=== PATIENT | male | born 1945 | race Caucasian/White ===

== ENCOUNTER 2016-12-20 09:00 | Outpatient (CLI) | payer MEDICARE, BC | END 2016-12-20 09:01 | disposition home or self-care (01) | DX: E11.9 Type 2 diabetes mellitus without complications (principal); Z79.899 Other long term (current) drug therapy ==

== ENCOUNTER 2017-03-21 08:43 | Outpatient (CLI) | payer MEDICARE, BC ==
[2017-03-21 14:25] LABS: BASOPHILS # (AUTO) 0.1 10^3/uL (0.0-0.1); BASOPHILS % (AUTO) 0.8 %; EOSINOPHILS # (AUTO) 0.2 10^3/uL (0.0-0.7); EOSINOPHILS % (AUTO) 2.1 %; HCT - HEMATOCRIT 42.4 % (42.0-52.0); HGB - HEMOGLOBIN 14.5 g/dL (14.0-18.0); LYMPHOCYTES # (AUTO) 1.5 10^3/uL (1.5-3.5); LYMPHOCYTES % (AUTO) 15.5 %; MEAN CORPUSCULAR HEMOGLOBIN 31.1 pg (27.0-31.0); MEAN CORPUSCULAR HGB CONC 34.1 g/dL (32.0-36.0); MEAN CORPUSCULAR VOLUME 91.2 fL (80.0-94.0); MEAN PLATELET VOLUME 9.2 fL (7.4-11.4); MONOCYTES # (AUTO) 0.8 10^3/uL (0.0-1.0); MONOCYTES % (AUTO) 8.2 %; NEUTROPHILS % (AUTO) 73.4 %; NUCLEATED RED BLOOD CELLS AUTO 0.1 /100WBC; RED BLOOD COUNT 4.65 10^6/uL (4.70-6.10); RED CELL DISTRIBUTION WIDTH 13.6 % (12.0-15.0); UNCORRECTED WHITE BLOOD COUNT 9.6 x10^3/uL; WHITE BLOOD COUNT 9.6 x10^3/uL (4.8-10.8)
[2017-03-21 14:37] LABS: ALBUMIN/GLOBULIN RATIO 1.9 (1.0-2.2); BUN - BLOOD UREA NITROGEN 16 mg/dL (6-20); CALCIUM 9.4 mg/dL (8.5-10.3); CARBON DIOXIDE - CO2 27 mmol/L (21-32); CHLORIDE 102 mmol/L (101-111); CHOL/HDL RATIO 4.3 (<5.0); CHOLESTEROL 204 mg/dL; CREATININE 1.1 mg/dL (0.6-1.2); GFR - MDRD 66 (>89); GLUCOSE 174 mg/dL (70-100); HDL CHOLESTEROL 48 mg/dL; LDL/HDL RATIO 2.4 (<3.6); POTASSIUM 4.8 mmol/L (3.5-5.0); SODIUM 138 mmol/L (135-145); TRIGLYCERIDES 211 mg/dL; VLDL CHOLESTEROL 42 mg/dL
[2017-03-21 14:38] LABS: HEMOGLOBIN A1C 0.97 g/dL
== END 2017-03-21 08:44 | disposition home or self-care (01) ==
LOC: LAB.R 08:43
PROVIDERS: ATTEND Physician Assistant Medical
DX: E03.9 Hypothyroidism, unspecified (principal); E11.9 Type 2 diabetes mellitus without complications; E78.2 Mixed hyperlipidemia; F32.9 Major depressive disorder, single episode, unspecified; Z79.899 Other long term (current) drug therapy
CPT/HCPCS: 80053; 80061; 83036; 84443; 85025

== ENCOUNTER 2017-04-01 15:44 | Outpatient (CLI) | payer MEDICARE, BC ==
[2017-04-01] MEDS ORDERED: GADOBUTROL 7.5 MMOL/7.5 ML VIAL IVP ONE (16:50)
--- NOTE | 2017-04-02 17:00 | MRI Report ---
EXAM: MRI BRAIN WITHOUT AND WITH CONTRAST EXAM DATE: 04/01/2017 05:03 PM. CLINICAL HISTORY: 71-year-old with severe history of motion sickness as well as sensation of nausea a nd vomiting when patient tilts her head backward. COMPARISON: None. TECHNIQUE: Multiplanar, multisequence T1-weighted and fluid-sensitive MR sequences of the brain were performed. Sequences optimized for routine evaluation. Other: None. Without and with IV Contrast: 7.5 cc GADAVIST. FINDINGS: Brain Volume: Mild cortical volume loss appears age-appropriate. Parenchyma/Dura: No acute parenchymal hemorrhage, mass, or midline shift. Moderate bilateral areas of T2/FLAIR signal hyperintensity seen. No areas of restricted diffusion to suggest acute infarct. Ther e is punctate foci susceptibility artifact seen within the posterior aspect of the right hippocampus likely representing old hemorrhagic blood product. There is susceptibility artifact seen within bilat eral globus pallidus and putamen likely representing mineralization. Pituitary: Unremarkable. Ventricles/Cisterns: No definite abnormal extra axial fluid collection/mass seen. Ventricles and sulc i appear prominent but appropriate thick central volume loss. Cisterns are patent. Fluid is seen with in Meckel's case. Visualized internal auditory canals appear clear. Sinuses: The visualized paranasal sinuses, mastoid air cells, and middle ear cavities are clear. Flui d is seen within the semicircular canals and cochlea. Orbits: The visualized orbits demonstrate changes of bilateral lens replacement. Vasculature: Visualized major intracranial flow voids appear maintained. Dural sinuses appear patent. Bones: The calvarium appears normal. The craniocervical junction appears normal. Other: No abnormal postcontrast enhancement seen. IMPRESSION: 1. No acute infarct, intracranial hemorrhage, mass, hydrocephalus, or abnormal postcontrast enhanceme nt. 2. Moderate white matter changes that while nonspecific, may represent sequela of chronic small vesse l ischemic disease. [facility] Referring Provider Line: [phone] SITE ID: [id number]
== END 2017-04-01 15:45 | disposition home or self-care (01) ==
LOC: DI 15:44
PROVIDERS: ATTEND Physician Assistant Medical
DX: R26.81 Unsteadiness on feet (principal); R26.0 Ataxic gait; R41.82 Altered mental status, unspecified
CPT/HCPCS: 70553; A9585

== ENCOUNTER 2017-05-09 10:56 | Outpatient (CLI) | payer MEDICARE, BC | END 2017-05-09 10:57 | disposition home or self-care (01) | DX: E03.9 Hypothyroidism, unspecified (principal); Z79.899 Other long term (current) drug therapy ==

== ENCOUNTER 2017-08-14 12:26 | Outpatient (CLI) | payer MEDICARE, BC ==
[2017-08-14 14:02] LABS: HEMOGLOBIN A1C 0.85 g/dL
[2017-08-15 12:03] LABS: CREATININE 1.3 mg/dL (0.6-1.2)
== END 2017-08-14 12:27 | disposition home or self-care (01) ==
LOC: LAB.R 12:26
PROVIDERS: ATTEND Physician Assistant Medical
DX: R41.89 Other symptoms and signs involving cognitive functions and awareness (principal); E11.9 Type 2 diabetes mellitus without complications; Z79.899 Other long term (current) drug therapy
CPT/HCPCS: 82565; 82607; 82947; 83036; 84520

== ENCOUNTER 2017-08-18 07:47 | Outpatient (CLI) | payer MEDICARE, BC ==
[~2017-08-18 07:47] MED LIST: IOPAMIDOL-300 100 ML VIAL ONE
[2017-08-18] MEDS ORDERED: IOPAMIDOL-300 100 ML VIAL IVP ONE (08:39)
--- NOTE | 2017-08-18 16:26 | CT Preliminary Report ---
Exam: CT NECK ANGIO IMPRESSION: 1. Normal neck CT angiogram. No hemodynamically significant stenoses. [facility] SITE ID: [id number]
--- NOTE | 2017-08-18 16:28 | CT Report ---
EXAM: CT ANGIOGRAM NECK EXAM DATE: 08/18/2017 08:40 AM. CLINICAL HISTORY: Neck pain that causes dizziness. COMPARISON: None. MRI of the brain 04/01/2017. TECHNIQUE: Routine axial helical imaging was performed from the skull base through the aortic arch. I V Contrast: 100 cc Isovue-300. Reconstructions: Routine multiplanar 3D MIP reconstructions. Evaluatio n of arterial stenosis is based on a NASCET method of measurement. In accordance with CT protocol optimization, one or more of the following dose reduction techniques w ere utilized for this exam: automated exposure control, adjustment of mA and/or KV based on patient s ize, or use of iterative reconstructive technique. FINDINGS: Mild tortuosity of the aortic arch is seen. Normal three-vessel branching is present. Great vessels a re patent and unremarkable. Right Carotid: The common carotid, internal carotid, and external carotid arteries are widely patent. No dissection, significant atherosclerotic plaque, or calcification identified. Left Carotid: The common carotid, internal carotid, and external carotid arteries are widely patent. No dissection, significant atherosclerotic plaque, or calcification identified. Vertebrals: The vertebrobasilar system shows no stenoses. Intracranial Circulation: Normal. No stenoses or aneurysms of the visualized vessels. Other: The bones, soft tissues, and lung apices are within normal limits. IMPRESSION: 1. Normal neck CT angiogram. No hemodynamically significant stenoses. [facility] Referring Provider Line: [phone] SITE ID: [id number]
== END 2017-08-18 07:48 | disposition home or self-care (01) ==
LOC: DI 07:47
PROVIDERS: ATTEND Physician Assistant Medical
DX: R11.10 Vomiting, unspecified (principal)
CPT/HCPCS: 70498; Q9967

== ENCOUNTER 2017-11-15 08:00 | Outpatient (CLI) | payer MEDICARE, BC ==
[2017-11-15 10:34] LABS: HB2 TOTAL 14.5 g/dL; HEMOGLOBIN A1C 0.88 g/dL; HEMOGLOBIN A1C % 7.7 % (4.6-6.2)
== END 2017-11-15 08:01 | disposition home or self-care (01) ==
LOC: LAB.R 08:00
PROVIDERS: ATTEND Physician Assistant Medical
DX: E11.9 Type 2 diabetes mellitus without complications (principal)
CPT/HCPCS: 82947; 83036

== ENCOUNTER 2018-03-11 20:03 | Emergency (ER) | payer MEDICARE, BC ==
[2018-03-11 21:07] LABS: BASOPHILS # (AUTO) 0.1 10^3/uL (0.0-0.1); BASOPHILS % (AUTO) 0.8 %; EOSINOPHILS # (AUTO) 0.4 10^3/uL (0.0-0.7); EOSINOPHILS % (AUTO) 4.3 %; HGB - HEMOGLOBIN 13.8 g/dL (14.0-18.0); LYMPHOCYTES # (AUTO) 1.7 10^3/uL (1.5-3.5); LYMPHOCYTES % (AUTO) 19.2 %; MEAN CORPUSCULAR HEMOGLOBIN 30.6 pg (27.0-31.0); MEAN CORPUSCULAR VOLUME 92.9 fL (80.0-94.0); MEAN PLATELET VOLUME 8.8 fL (7.4-11.4); MONOCYTES # (AUTO) 0.8 10^3/uL (0.0-1.0); MONOCYTES % (AUTO) 9.1 %; NEUTROPHILS # (AUTO) 5.8 10^3/uL (1.5-6.6); NEUTROPHILS % (AUTO) 66.6 %; PLT - PLATELET COUNT 218 10^3/uL (130-450); RED CELL DISTRIBUTION WIDTH 13.3 % (12.0-15.0); WHITE BLOOD COUNT 8.8 x10^3/uL (4.8-10.8)
[2018-03-11 21:12] LABS: ALBUMIN 4.6 g/dL (3.2-5.5); ALBUMIN/GLOBULIN RATIO 1.9 (1.0-2.2); BILIRUBIN,TOTAL 0.8 mg/dL (0.2-1.0); CALCIUM 9.2 mg/dL (8.5-10.3); CREATININE 1.4 mg/dL (0.6-1.2); MAGNESIUM 1.8 mg/dL (1.7-2.8); PHOSPHORUS 3.6 mg/dL (2.5-4.6)
[2018-03-11 21:20] VITALS: BP 117/87
[2018-03-11] MEDS ORDERED: BACITRACIN OINT TOP STA (21:30)
--- NOTE | 2018-03-11 21:36 | ED Physician Documentation ---
PD HPI UPPER EXT INJURY - Stated complaint Stated Complaint: RT HAND LAC - Chief complaint Chief Complaint: Laceration - History obtained from History obtained from: Patient - History of Present Illness Location: Right, Hand Type of injury: Laceration Where injury occurred: Home Timing - onset: Today Timing - details: Abrupt onset Worsened by: Moving, Palpating Recently seen: Not recently seen - Additonal information Additional information: Patient is a 72 year old male with no significant past medical history who is presenting to the emergency department for hand laceration. Patient states states that he was washing dishes when he cut his hand on a wine glass. Patient is up to date on his tetanus. while in triage patient had an episode of tachycardia that stopped upon evaluation. Patient was asymptomatic upon initial evaluation. Review of Systems Ten Systems: 10 systems reviewed and negative Skin: reports: Laceration (s) PD PAST MEDICAL HISTORY - Past Medical History Cardiovascular: Arrhythmia Respiratory: None Endocrine/Autoimmune: Type 2 diabetes, HyPOthyroidism GI: None : None HEENT: Other Psych: Depression Musculoskeletal: Osteoarthritis Derm: Eczema - Past Surgical History Past Surgical History: No General: Colonoscopy - Present Medications Home Medications: Ambulatory Orders Medication Instructions Recorded Confirmed FLUoxetine [PROzac] 10 mg PO DAILY 06/15/15 05/20/16 Ketorolac [Toradol] 10 mg PO Q6H PRN #14 tablet 06/15/15 05/20/16 metFORMIN [Glucophage] 500 mg PO BID 06/15/15 05/20/16 Atorvastatin [Lipitor] 20 mg PO DAILY 05/20/16 05/20/16 FLUoxetine [PROzac] 20 mg PO DAILY 05/20/16 05/20/16 Levothyroxine [Synthroid] 125 mcg PO DAILY 05/20/16 05/20/16 Lisinopril 10 mg PO DAILY 05/20/16 05/20/16 buPROPion [Wellbutrin Sr] 150 mg PO DAILY 05/20/16 05/20/16 glipiZIDE [Glucotrol] 2.5 mg PO DAILY 05/20/16 05/20/16 - Allergies Allergies/Adverse Reactions: Allergies Allergy/AdvReac Type Severity Reaction Status Date / Time hydrocodone bitartrate * Allergy Intermediate Nausea Verified 03/11/18 20:35 [From Vicodin] acetaminophen [From Vicodin] Allergy Nausea Verified 06/15/15 14:45 - Social History Does the pt smoke?: No Smoking Status: Never smoker Does the pt drink ETOH?: No Does the pt have substance abuse?: No - Immunizations Immunizations are current?: Yes - POLST Patient has POLST: Yes PD ED PE NORMAL - Vitals Vital signs reviewed: Yes - General General: Alert and oriented X 3, No acute distress - HEENT HEENT: Atraumatic - Neck Neck: Supple, no meningeal sign - Cardiac Cardiac: RRR, No murmur - Respiratory Respiratory: No respiratory distress - Neuro Neuro: Alert and oriented X 3, No motor deficit, Normal speech Eye Opening: Spontaneous PD ED PE EXPANDED - Extremities Extremities: Right hand (3cm laceration of right medial hand) JOE UE/Hands Visual: 1 - laceration Results - Vitals Vitals: Vital Signs - 24 hr 03/11/18 03/11/18 03/11/18 20:14 20:28 21:19 Temperature 36.9 C Heart Rate 160 H 91 92 Respiratory 18 18 Rate Blood Pressure 132/90 H 117/87 H O2 Saturation 99 96 Oxygen O2 Source Room air - EKG (time done) 2024 Rate: Rate (enter#) (152) Rhythm: SVT [place]: Normal Intervals: Normal [place] Ischemia: ST depression Compare to prior EKG: Changed from prior EKG 2026 Rhythm: NSR [place]: Normal Intervals: Normal [place] QRS: Normal Ischemia: Normal ST segments - Labs Labs: Laboratory Tests 03/11/18 03/11/18 20:55 20:55 WBC 8.8 RBC 4.50 L Hgb 13.8 L Hct 41.8 L MCV 92.9 MCH 30.6 MCHC 33.0 RDW 13.3 Plt Count 218 MPV 8.8 Neut # 5.8 Lymph # 1.7 [place] # 0.8 Eos # 0.4 Baso # 0.1 Absolute Nucleated RBC 0.00 Nucleated RBC % 0.0 Sodium 138 Potassium 4.2 Chloride 103 Carbon Dioxide 24 Anion Gap 11.0 BUN 16 Creatinine 1.4 H Estimated GFR (MDRD) 50 L Glucose 138 H Calcium 9.2 Phosphorus 3.6 Magnesium 1.8 Total Bilirubin 0.8 AST 26 ALT 33 Alkaline Phosphatase 65 Total Protein 7.0 Albumin 4.6 Globulin 2.4 Albumin/Globulin Ratio 1.9 Lipase 36 Procedures - Laceration (location) right hand Length in cm: 3 Wound type: Linear Neurovascular status: Sensory intact, Vascular intact Wound Preparation: Irrigated copiously NS Skin layer closure: Nylon, Size #-0 - enter number (4), Sutures - enter # (3) Other: Patient tolerated well, No complications, Dressing applied, Tetanus UTD Complexity: Simple PD MEDICAL DECISION MAKING - ED course Complexity details: reviewed old records, reviewed results, re-evaluated patient , considered differential, d/w patient, d/w family ED course: patient was seen and examined at bedside. Patient was found to have a heart rate of 160 in triage and was in svt. Patient vasalvaed and the hr returned to normal. labs were drawn. patient's laceration was cleaned and repaired. patient's labs were within normal limits. Patient had no further episodes of svt and remained asymptomatic while in the emergency department. Patient required no further work up and was stable for discharge with outpatient follow up. Departure - Departure Disposition: 01 Home, Self Care Clinical Impression: Laceration Condition: Good Instructions: ED Laceration Hand Follow-Up: Yulisa Grover PA-C [Primary Care Provider] - Within 1 week Comments: You should keep the wound clean and dry. You can take motrin or tylenol as needed for pain. You should follow up with your doctor in 5-7 days for suture removal. You also had an episode of svt (supra ventricular tachycardia) that has resolved. You should return to the emergency department if you feel like your heart is racing, chest pain or shortness of breath.
== END 2018-03-11 21:40 | disposition home or self-care (01) ==
LOC: ED 20:03
DX: S61.411A Laceration without foreign body of right hand, initial encounter (principal); W25.XXXA Contact with sharp glass, initial encounter; Y93.G1 Activity, food preparation and clean up; Y92.009 Unspecified place in unspecified non-institutional (private) residence as the place of occurrence of the external cause; I47.1 Supraventricular tachycardia; E11.9 Type 2 diabetes mellitus without complications; Z79.84 Long term (current) use of oral hypoglycemic drugs; E03.9 Hypothyroidism, unspecified
CPT/HCPCS: 12002; 80053; 83690; 83735; 84100; 85025; 93005; 99283; 99284; A9270; 36415

== ENCOUNTER 2018-04-04 08:00 | Outpatient (CLI) | payer MEDICARE, BC ==
[2018-04-04 13:40] LABS: BASOPHILS # (AUTO) 0.1 10^3/uL (0.0-0.1); BASOPHILS % (AUTO) 0.7 %; EOSINOPHILS # (AUTO) 0.3 10^3/uL (0.0-0.7); EOSINOPHILS % (AUTO) 3.2 %; HGB - HEMOGLOBIN 13.7 g/dL (14.0-18.0); LYMPHOCYTES # (AUTO) 1.2 10^3/uL (1.5-3.5); LYMPHOCYTES % (AUTO) 13.5 %; MEAN CORPUSCULAR HEMOGLOBIN 30.5 pg (27.0-31.0); MEAN CORPUSCULAR HGB CONC 33.1 g/dL (32.0-36.0); MEAN CORPUSCULAR VOLUME 92.4 fL (80.0-94.0); MEAN PLATELET VOLUME 8.8 fL (7.4-11.4); MONOCYTES # (AUTO) 0.7 10^3/uL (0.0-1.0); MONOCYTES % (AUTO) 7.3 %; NEUTROPHILS # (AUTO) 6.9 10^3/uL (1.5-6.6); NEUTROPHILS % (AUTO) 75.3 %; PLT - PLATELET COUNT 211 10^3/uL (130-450); RED BLOOD COUNT 4.48 10^6/uL (4.70-6.10); RED CELL DISTRIBUTION WIDTH 13.2 % (12.0-15.0); WHITE BLOOD COUNT 9.2 x10^3/uL (4.8-10.8)
[2018-04-04 14:03] LABS: ALBUMIN 4.1 g/dL (3.2-5.5); ALBUMIN/GLOBULIN RATIO 1.6 (1.0-2.2); ALKALINE PHOSPHATASE 61 IU/L (42-121); ALT ALANINE AMINOTRANSFERASE 34 IU/L (10-60); AST ASPARTATE AMINOTRANSFERASE 22 IU/L (10-42); BILIRUBIN,TOTAL 0.8 mg/dL (0.2-1.0); BUN - BLOOD UREA NITROGEN 14 mg/dL (6-20); CALCIUM 8.9 mg/dL (8.5-10.3); CARBON DIOXIDE - CO2 27 mmol/L (21-32); CHLORIDE 100 mmol/L (101-111); CHOL/HDL RATIO 2.8 (<5.0); CHOLESTEROL 142 mg/dL; CREATININE 0.9 mg/dL (0.6-1.2); GFR - MDRD 82 (>89); GLUCOSE 114 mg/dL (70-100); HDL CHOLESTEROL 50 mg/dL; LDL CHOLESTEROL,CALCULATED 66 mg/dL; LDL/HDL RATIO 1.3 (<3.6); SODIUM 135 mmol/L (135-145); TOTAL PROTEIN 6.7 g/dL (6.7-8.2); VLDL CHOLESTEROL 26 mg/dL
[2018-04-04 14:12] LABS: THYROID STIMULATING HORMONE 0.27 uIU/mL (0.34-5.60)
[2018-04-04 14:16] LABS: HB2 TOTAL 15.5 g/dL; HEMOGLOBIN A1C 0.8 g/dL; HEMOGLOBIN A1C % 6.9 % (4.6-6.2)
[2018-04-05 13:36] LABS: HEPATITIS C ANTIBODY NON-REACTIVE (NON-REACTIVE)
== END 2018-04-04 08:01 | disposition home or self-care (01) ==
LOC: LAB.R 08:00
PROVIDERS: ATTEND Physician Assistant Medical
DX: Z00.01 Encounter for general adult medical examination with abnormal findings (principal); Z79.899 Other long term (current) drug therapy; Z12.5 Encounter for screening for malignant neoplasm of prostate; E11.9 Type 2 diabetes mellitus without complications; F32.9 Major depressive disorder, single episode, unspecified; Z72.89 Other problems related to lifestyle; E03.9 Hypothyroidism, unspecified; E78.2 Mixed hyperlipidemia
CPT/HCPCS: 80053; 80061; 82607; 83036; 84443; 85025; 86803; G0103; 83721; 84153

== ENCOUNTER 2018-04-04 12:06 | Outpatient (CLI) | payer MEDICARE, BC ==
--- NOTE | 2018-04-04 16:59 | XRAY Report ---
THORACIC SPINE THREE VIEWS: 04/04/2018 HISTORY: Back pain. COMPARISON: 12/25/2007. FINDINGS: There is no evidence of compression fracture, vertebral body offset, or bone destruction. Mild thoracic dextroscoliosis. Scattered multilevel degenerative changes are present stable to minimally progressed compared with previous. IMPRESSION: DEGENERATIVE CHANGE THORACIC SPINE WITHOUT SUPERIMPOSED ACUTE FINDINGS. TD: 04/04/2018 15:04 [facility]
== END 2018-04-04 12:07 | disposition home or self-care (01) ==
LOC: DI 12:06
PROVIDERS: ATTEND Physician Assistant Medical
DX: M41.84 Other forms of scoliosis, thoracic region (principal); M54.6 Pain in thoracic spine
CPT/HCPCS: 72070

== ENCOUNTER 2018-04-04 12:42 | Outpatient (CLI) | payer MEDICARE, BC ==
--- NOTE | 2018-04-04 19:45 | CT Report ---
CT FACE: 04/04/2018 HISTORY: Fall with atypical face pain. Struck right side of face. TECHNIQUE: Axial noncontrast images of the facial bones with multiplanar reconstructions. FINDINGS: No facial fracture. Mastoid air cells, middle ear cavities, and paranasal sinuses normally aerated. Nasal septum midline. Orbital structures unremarkable. Temporomandibular joints anatomically aligned. C1-C2 alignment anatomic. Nasopharyngeal soft tissues not enlarged. Mild degenerative changes in the facet joints Upper cervical spine. There is soft tissue swelling of the right face with subcutaneous edema. An ovoid soft tissue density measuring approximately 3 x 1.5 cm image 90, likely represents a hematoma. IMPRESSION: NO FACIAL FRACTURE. SOFT TISSUE SWELLING AND PROBABLE HEMATOMA, RIGHT CHEEK. OTHERWISE, NEGATIVE. CT DOSE REDUCTION STATEMENT In accordance with CT protocol optimization, one or more of the following dose reduction techniques were utilized for this exam: automated exposure control, adjustment of mA and/or KV based on patient size, or use of iterative reconstructive technique. TD: 04/04/2018 17:28 [facility]
== END 2018-04-04 12:43 | disposition home or self-care (01) ==
LOC: DI 12:42
PROVIDERS: ATTEND Physician Assistant Medical
DX: Z00.01 Encounter for general adult medical examination with abnormal findings (principal); G50.1 Atypical facial pain; M54.9 Dorsalgia, unspecified; W19.XXXA Unspecified fall, initial encounter; E11.9 Type 2 diabetes mellitus without complications; E03.9 Hypothyroidism, unspecified; F32.9 Major depressive disorder, single episode, unspecified; E78.2 Mixed hyperlipidemia; Z12.5 Encounter for screening for malignant neoplasm of prostate; Z72.89 Other problems related to lifestyle; Z79.899 Other long term (current) drug therapy
CPT/HCPCS: 70486; 72070; 80053; 80061; 82607; 83036; 84443; 85025; 86803; G0103; 83721; 84153

== ENCOUNTER 2018-05-25 10:48 | Outpatient (CLI) | payer MEDICARE, BC | END 2018-05-25 10:49 | disposition home or self-care (01) | LOC: LAB 10:48 | PROVIDERS: ATTEND Physician Assistant Medical | DX: Z79.899 Other long term (current) drug therapy (principal); E03.9 Hypothyroidism, unspecified | CPT/HCPCS: 36415; 84443 ==

== ENCOUNTER 2018-06-13 08:02 | Outpatient (CLI) | payer MEDICARE, BC | END 2018-06-13 08:03 | disposition home or self-care (01) | LOC: DI 08:02 | PROVIDERS: ATTEND Internal Medicine Cardiovascular Disease | DX: I48.0 Paroxysmal atrial fibrillation (principal); I47.1 Supraventricular tachycardia | CPT/HCPCS: 93306 ==

== ENCOUNTER 2018-07-05 09:37 | Outpatient (CLI) | payer MEDICARE, BC ==
[2018-07-05 16:36] VITALS: BP 98/64
--- NOTE | 2018-07-06 08:10 | Nuclear Medicine Report ---
Procedure Date: 07/05/2018 Accession Number: [id number] / [id number] Procedure: NM - Myocardial Perfusion STR/RST CPT Code: FULL RESULT: EXAM: SINGLE-ISOTOPE EXERCISE STRESS TEST. SINGLE-ISOTOPE AND ONE-DAY REST/STRESS MYOCARDIAL PERFUSION SCANS WITH TOMOGRAPHIC IMAGING, QUANTITATIVE ANALYSIS, WALL MOTION ANALYSIS AND CALCULATION OF EJECTION FRACTION. EXAM DATE: 07/05/2018 03:37 PM. CLINICAL HISTORY: Paroxysmal atrial fibrillation. COMPARISON: None available. TECHNIQUE: A rest myocardial perfusion scan was done with tomography after the intravenous administration of 9.8 mCi Tc-99m sestamibi. After an appropriate delay, a treadmill exercise stress was performed according to department protocol. The patient exercised for 8 minutes and 15 seconds. The maximum heart rate was 143 bpm, which was 100% of the maximum predicted heart rate of 145 bpm. At approximately peak heart rate, 40.1 mCi of Tc-99m sestamibi was injected for stress myocardial perfusion scan. Motion correction was applied when appropriate. Gated tomographic images were obtained for wall motion analysis and computation of left ventricular ejection fraction. EKG findings reported separately. FINDINGS: There is a small, mild, fixed apical defect. No reversible perfusion defects are appreciated. Computer analysis: Summed stress score 6 Summed rest score 1 Summed difference score 5 Wall motion analysis demonstrates no focal wall motion abnormality. The left ventricular end-diastolic volume is 66 cc. The left ventricular end-systolic volume is 21 cc. The left ventricular ejection fraction is calculated to be 68%. IMPRESSION: 1. There is a small fixed apical perfusion defect. No convincing reversible perfusion defects. 2. Normal left ventricular ejection fraction of 68%. 3. Normal segmental and global wall motion. 4. Normal left ventricular cavity size, no change with stress. 5. Based on computer analysis, mildly abnormal study with moderate ischemia. Based on visual analysis, this is felt to be an overestimate. [facility]
--- NOTE | 2018-07-09 08:38 | CARDIAC PROCEDURE NOTE ---
DATE OF SERVICE: 07/05/2018 Physician: ELICEO Garrett PCP: Yulisa Grover PA-C. DIET KITCHEN COOK: Dr. Vitaliy Khan. PROCEDURE: MPS treadmill stress test. REASON FOR PROCEDURE: Paroxysmal atrial fibrillation. CARDIAC RISK FACTORS: Age, Diabetes. PREVIOUS CARDIAC PROCEDURES: ETT PREDICTED EXERCISE TIME: 6:25-6:35. CLINICAL HISTORY: A 73-year-old male without known coronary artery disease. INITIAL RESTING VITAL SIGNS: BP 130/68, heart rate 65, height 68 inches, weight 200 pounds. PROCEDURE AND FINDINGS: The patient identity and date verified. Consent signed. MEDICATIONS HELD: Metoprolol and diltiazem for 24 hours. The patient performed treadmill exercise, using a Alexander protocol, completing 8 minutes,15 seconds and completing an estimated workload of 7.63 metabolic equivalents. For stage I and II, he did a regular Alexander, but it was necessary to change to a modified Alexander for stage III. At peak heart rate, Cardiolite was injected, and the patient walked for 60 seconds more. Maximal blood pressure was 160/76 with a heart rate of 143 beats per minute or 98% of maximum predicted heart rate for age. At peak heart rate, Cardiolite was injected, and the patient walked for 60 seconds longer. The patient stopped because of symptoms of tired legs and nearly fell off the end of the treadmill. The resting ECG demonstrated normal sinus rhythm with no abnormality. Maximum ST-segment depression was less than 0.5 mm and upsloping. There was no ectopy. The 1-minute heart rate recovery was within normal limits. There was no arrhythmia. FINAL IMPRESSIONS 1. Quality of test: Fair to good with moderate artifact. 2. Negative stress electrocardiogram for ST wave ischemia by electrocardiographic criteria. 3. T-wave inversions developed in recovery in leads 1, V2-6. 4. The patient's standing blood pressure was 98/64, and on cessation of exercise, his blood pressure went down to 116/56 but rebounded. He denied lightheadedness. 5. No ectopy nor arrhythmia is noted. (continuation) JANELLE/BRE/ramu TD: 07/05/2018 16:28 (orig.) TD: 07/05/2018 16:23 TALYA
== END 2018-07-05 09:38 | disposition home or self-care (01) ==
LOC: DI 09:37
PROVIDERS: ATTEND Internal Medicine Cardiovascular Disease
DX: I25.9 Chronic ischemic heart disease, unspecified (principal); I48.0 Paroxysmal atrial fibrillation
CPT/HCPCS: 78452; 93017; A9500

== ENCOUNTER 2018-07-24 13:33 | Outpatient (CLI) | payer MEDICARE, BC | END 2018-07-24 13:34 | disposition home or self-care (01) | LOC: SC 13:33 | PROVIDERS: ATTEND Internal Medicine Pulmonary Disease | DX: G47.33 Obstructive sleep apnea (adult) (pediatric) (principal) | CPT/HCPCS: 99203; G0463; 99212 ==

== ENCOUNTER 2018-07-24 19:28 | Outpatient (CLI) | payer MEDICARE, BC | END 2018-07-24 19:29 | disposition home or self-care (01) | LOC: SC 19:28 | PROVIDERS: ATTEND Internal Medicine Pulmonary Disease | DX: G47.33 Obstructive sleep apnea (adult) (pediatric) (principal); G47.61 Periodic limb movement disorder | CPT/HCPCS: 95810; 99203; G0463; 99212 ==

== ENCOUNTER 2018-07-31 08:00 | Outpatient (CLI) | payer MEDICARE, BC ==
[2018-07-31 14:00] LABS: BASOPHILS % (AUTO) 0.4 %; EOSINOPHILS # (AUTO) 0.2 10^3/uL (0.0-0.7); EOSINOPHILS % (AUTO) 2.1 %; HGB - HEMOGLOBIN 14.5 g/dL (14.0-18.0); LYMPHOCYTES # (AUTO) 1.4 10^3/uL (1.5-3.5); LYMPHOCYTES % (AUTO) 14.4 %; MEAN CORPUSCULAR HEMOGLOBIN 31.3 pg (27.0-31.0); MEAN CORPUSCULAR HGB CONC 33.7 g/dL (32.0-36.0); MEAN CORPUSCULAR VOLUME 92.7 fL (80.0-94.0); MEAN PLATELET VOLUME 8.3 fL (7.4-11.4); MONOCYTES # (AUTO) 0.7 10^3/uL (0.0-1.0); MONOCYTES % (AUTO) 7.6 %; NEUTROPHILS # (AUTO) 7.2 10^3/uL (1.5-6.6); NEUTROPHILS % (AUTO) 75.5 %; PLT - PLATELET COUNT 206 10^3/uL (130-450); RED BLOOD COUNT 4.62 10^6/uL (4.70-6.10); RED CELL DISTRIBUTION WIDTH 13.5 % (12.0-15.0); WHITE BLOOD COUNT 9.6 x10^3/uL (4.8-10.8)
[2018-07-31 14:39] LABS: HB2 TOTAL 15.7 g/dL; HEMOGLOBIN A1C 1.12 g/dL; HEMOGLOBIN A1C % 8.7 % (4.6-6.2)
== END 2018-07-31 08:01 | disposition home or self-care (01) ==
LOC: LAB.R 08:00
PROVIDERS: ATTEND Physician Assistant Medical
DX: E11.9 Type 2 diabetes mellitus without complications (principal); Z79.899 Other long term (current) drug therapy
CPT/HCPCS: 82947; 83036; 85025

== ENCOUNTER 2018-08-14 08:00 | Outpatient (CLI) | payer MEDICARE, BC | END 2018-08-14 08:01 | LOC: LAB.R 08:00 | PROVIDERS: ATTEND Physician Assistant Medical | DX: Z53.9 Procedure and treatment not carried out, unspecified reason (principal) ==

== ENCOUNTER 2018-08-15 15:08 | Outpatient (CLI) | payer MEDICARE, BC ==
[2018-08-15 20:20] LABS: CALCIUM 8.7 mg/dL (8.5-10.3); CREATININE 1.1 mg/dL (0.6-1.2)
== END 2018-08-15 15:09 ==
LOC: LAB.R 15:08
PROVIDERS: ATTEND Physician Assistant Medical
DX: E11.9 Type 2 diabetes mellitus without complications (principal); R82.4 Acetonuria
CPT/HCPCS: 80048; 82043

== ENCOUNTER 2018-08-28 08:40 | Outpatient (CLI) | payer MEDICARE, BC | END 2018-08-28 08:41 | disposition home or self-care (01) | LOC: SC 08:40 | PROVIDERS: ATTEND Nurse Practitioner Family | DX: G47.31 Primary central sleep apnea (principal); G47.33 Obstructive sleep apnea (adult) (pediatric); G47.61 Periodic limb movement disorder | CPT/HCPCS: 99215; G0463; 99212 ==

== ENCOUNTER 2018-09-25 09:43 | Outpatient (CLI) | payer MEDICARE, BC ==
[2018-09-25 10:23] LABS: BASOPHILS % (AUTO) 0.5 %; EOSINOPHILS # (AUTO) 0.2 10^3/uL (0.0-0.7); LYMPHOCYTES # (AUTO) 1.4 10^3/uL (1.5-3.5); LYMPHOCYTES % (AUTO) 15.7 %; MEAN CORPUSCULAR HEMOGLOBIN 31.6 pg (27.0-31.0); MEAN CORPUSCULAR HGB CONC 34.1 g/dL (32.0-36.0); MEAN CORPUSCULAR VOLUME 92.8 fL (80.0-94.0); MONOCYTES # (AUTO) 0.8 10^3/uL (0.0-1.0); MONOCYTES % (AUTO) 9.2 %; NEUTROPHILS # (AUTO) 6.6 10^3/uL (1.5-6.6); NEUTROPHILS % (AUTO) 72.6 %; PLT - PLATELET COUNT 207 10^3/uL (130-450); RED BLOOD COUNT 4.43 10^6/uL (4.70-6.10); RED CELL DISTRIBUTION WIDTH 13.5 % (12.0-15.0); WHITE BLOOD COUNT 9.1 x10^3/uL (4.8-10.8)
== END 2018-09-25 09:44 | disposition home or self-care (01) ==
LOC: LAB 09:43
PROVIDERS: ATTEND Physician Assistant Medical
DX: D72.829 Elevated white blood cell count, unspecified (principal)
CPT/HCPCS: 36415; 85025

== ENCOUNTER 2018-11-06 10:26 | Outpatient (CLI) | payer MEDICARE, BC ==
[2018-11-06 11:21] LABS: HB2 TOTAL 15.3 g/dL; HEMOGLOBIN A1C 0.84 g/dL; HEMOGLOBIN A1C % 7.2 % (4.6-6.2)
== END 2018-11-06 10:27 | disposition home or self-care (01) ==
LOC: LAB 10:26
PROVIDERS: ATTEND Physician Assistant Medical
DX: Z00.01 Encounter for general adult medical examination with abnormal findings (principal); E11.9 Type 2 diabetes mellitus without complications; Z79.899 Other long term (current) drug therapy; Z12.5 Encounter for screening for malignant neoplasm of prostate; G47.61 Periodic limb movement disorder
CPT/HCPCS: 36415; 82728; 82947; 83036; G0103; 84153

== ENCOUNTER 2018-11-08 11:07 | Outpatient (CLI) | payer MEDICARE, BC | END 2018-11-08 11:08 | disposition home or self-care (01) | LOC: SC 11:07 | PROVIDERS: ATTEND Nurse Practitioner Family | DX: G47.33 Obstructive sleep apnea (adult) (pediatric) (principal); G47.31 Primary central sleep apnea; F43.10 Post-traumatic stress disorder, unspecified | CPT/HCPCS: 99215; G0463; 99212 ==

== ENCOUNTER 2018-12-12 10:19 | Outpatient (CLI) | payer MEDICARE, BC | END 2018-12-12 10:20 | disposition home or self-care (01) | LOC: SC 10:19 | PROVIDERS: ATTEND Nurse Practitioner Family | DX: G47.33 Obstructive sleep apnea (adult) (pediatric) (principal); G47.31 Primary central sleep apnea | CPT/HCPCS: 99214; G0463; 99212 ==

== ENCOUNTER 2019-01-10 13:13 | Outpatient (CLI) | payer MEDICARE, BC | END 2019-01-10 13:14 | disposition home or self-care (01) | LOC: SC 13:13 | PROVIDERS: ATTEND Nurse Practitioner Family | DX: G47.33 Obstructive sleep apnea (adult) (pediatric) (principal); G47.31 Primary central sleep apnea | CPT/HCPCS: 99214; G0463; 99212 ==

== ENCOUNTER 2019-01-20 19:31 | Outpatient (CLI) | payer MEDICARE, BC | END 2019-01-20 19:32 | disposition home or self-care (01) | LOC: SC 19:31 | PROVIDERS: ATTEND Internal Medicine Pulmonary Disease | DX: G47.31 Primary central sleep apnea (principal); G47.61 Periodic limb movement disorder | CPT/HCPCS: 95811 ==

== ENCOUNTER 2019-02-28 10:10 | Outpatient (CLI) | payer MEDICARE, BC | END 2019-02-28 10:11 | disposition home or self-care (01) | LOC: SC 10:10 | PROVIDERS: ATTEND Nurse Practitioner Family | DX: G47.33 Obstructive sleep apnea (adult) (pediatric) (principal); G47.31 Primary central sleep apnea; G47.61 Periodic limb movement disorder | CPT/HCPCS: 99215; G0463; 99212 ==

== ENCOUNTER 2019-04-23 10:59 | Outpatient (CLI) | payer MEDICARE, BC | END 2019-04-23 11:00 | disposition home or self-care (01) | LOC: SC 10:59 | PROVIDERS: ATTEND Nurse Practitioner Family | DX: G47.33 Obstructive sleep apnea (adult) (pediatric) (principal); G47.31 Primary central sleep apnea; G47.00 Insomnia, unspecified | CPT/HCPCS: 99214; G0463; 99212 ==

== ENCOUNTER 2019-04-25 22:39 | Emergency (ER) | payer MEDICARE, BC ==
[2019-04-25 23:15] LABS: BASOPHILS # (AUTO) 0.1 10^3/uL (0.0-0.1); BASOPHILS % (AUTO) 0.7 %; EOSINOPHILS # (AUTO) 0.6 10^3/uL (0.0-0.7); EOSINOPHILS % (AUTO) 5.8 %; HGB - HEMOGLOBIN 14.6 g/dL (14.0-18.0); LYMPHOCYTES % (AUTO) 19.1 %; MEAN CORPUSCULAR HEMOGLOBIN 30.4 pg (27.0-31.0); MEAN CORPUSCULAR HGB CONC 31.9 g/dL (32.0-36.0); MEAN CORPUSCULAR VOLUME 95.4 fL (80.0-94.0); MEAN PLATELET VOLUME 10.1 fL (7.4-11.4); MONOCYTES % (AUTO) 9.6 %; NEUTROPHILS # (AUTO) 6.7 10^3/uL (1.5-6.6); NEUTROPHILS % (AUTO) 64.2 %; PLT - PLATELET COUNT 239 10^3/uL (130-450); RED CELL DISTRIBUTION WIDTH 13.2 % (12.0-15.0); WHITE BLOOD COUNT 10.4 x10^3/uL (4.8-10.8)
[2019-04-25 23:27] LABS: ALBUMIN 4.5 g/dL (3.2-5.5); ALBUMIN/GLOBULIN RATIO 1.7 (1.0-2.2); BILIRUBIN,TOTAL 0.6 mg/dL (0.2-1.0); CALCIUM 9.4 mg/dL (8.5-10.3); CREATININE 1.2 mg/dL (0.6-1.2); TOTAL PROTEIN 7.2 g/dL (6.7-8.2)
--- NOTE | 2019-04-25 23:38 | XRAY Report ---
Reason: palpitations Procedure Date: 04/25/2019 Accession Number: [id number] / [id number] Procedure: XR - Chest 1 View X-Ray CPT Code: 24150 FULL RESULT: EXAM: CHEST RADIOGRAPHY EXAM DATE: 04/25/2019 11:14 PM. CLINICAL HISTORY: Palpitations. COMPARISON: THORACIC SPINE 2 VIEW 04/04/2018 12:29 PM XR CHEST PA AND LAT 12/25/2007 11:19 AM. TECHNIQUE: 1 view. FINDINGS: Lungs/Pleura: No focal opacities evident. No pleural effusion. No pneumothorax. Mediastinum: Cardiomegaly. Other: None. IMPRESSION: Cardiomegaly, but no evidence of acute cardiopulmonary disease. [facility]
--- NOTE | 2019-04-26 01:10 | ED Physician Documentation ---
PD HPI CHEST PAIN - Stated complaint Stated Complaint: IRREGULAR HB,ELAV BP - Chief complaint Chief Complaint: Cardiac PD PAST MEDICAL HISTORY - Past Medical History Cardiovascular: Arrhythmia Respiratory: None, Sleep apnea Endocrine/Autoimmune: Type 2 diabetes, HyPOthyroidism GI: None : None HEENT: Other Psych: Depression Musculoskeletal: Osteoarthritis Derm: Eczema - Past Surgical History Past Surgical History: No General: Colonoscopy - Present Medications Home Medications: Ambulatory Orders Medication Instructions Recorded Confirmed FLUoxetine [PROzac] 10 mg PO DAILY 06/15/15 05/20/16 Ketorolac [Toradol] 10 mg PO Q6H PRN #14 tablet 06/15/15 05/20/16 metFORMIN [Glucophage] 500 mg PO BID 06/15/15 05/20/16 Atorvastatin [Lipitor] 20 mg PO DAILY 05/20/16 05/20/16 FLUoxetine [PROzac] 20 mg PO DAILY 05/20/16 05/20/16 Levothyroxine [Synthroid] 125 mcg PO DAILY 05/20/16 05/20/16 Lisinopril 10 mg PO DAILY 05/20/16 05/20/16 buPROPion [Wellbutrin Sr] 150 mg PO DAILY 05/20/16 05/20/16 glipiZIDE [Glucotrol] 2.5 mg PO DAILY 05/20/16 05/20/16 - Allergies Allergies/Adverse Reactions: Allergies Allergy/AdvReac Type Severity Reaction Status Date / Time hydrocodone bitartrate * Allergy Intermediate Nausea Verified 03/11/18 20:35 [From Vicodin] acetaminophen [From Vicodin] Allergy Nausea Verified 06/15/15 14:45 - Social History Does the pt smoke?: No Smoking Status: Never smoker Does the pt drink ETOH?: No Does the pt have substance abuse?: No - Immunizations Immunizations are current?: Yes - POLST Patient has POLST: Yes Results - Vitals Vitals: Vital Signs - 24 hr 04/25/19 04/25/19 04/26/19 22:49 22:54 00:14 Temperature 36.5 C Heart Rate 90 82 88 Respiratory 25 H 19 24 Rate Blood Pressure 176/86 H 144/75 H 143/83 H Blood Pressure 144/75 H [Left] O2 Saturation 98 96 96 Oxygen O2 Source Room air - Labs Labs: Laboratory Tests 04/25/19 04/25/19 04/25/19 23:00 23:00 23:00 WBC 10.4 RBC 4.80 Hgb 14.6 Hct 45.8 MCV 95.4 H MCH 30.4 MCHC 31.9 L RDW 13.2 Plt Count 239 MPV 10.1 Neut # (Auto) 6.7 H Lymph # (Auto) 2.0 [place] # (Auto) 1.0 Eos # (Auto) 0.6 Baso # (Auto) 0.1 Absolute Nucleated RBC 0.00 Nucleated RBC % 0.0 Sodium 138 Potassium 4.4 Chloride 102 Carbon Dioxide 22 Anion Gap 14.0 H BUN 13 Creatinine 1.2 Estimated GFR (MDRD) 59 L Glucose 188 H Calcium 9.4 Total Bilirubin 0.6 AST 18 ALT 20 Alkaline Phosphatase 68 Troponin I < 0.04 Total Protein 7.2 Albumin 4.5 Globulin 2.7 Albumin/Globulin Ratio 1.7 Lipase 37
--- NOTE | 2019-04-26 01:11 | ED Physician Documentation ---
History of Present Illness - Stated complaint Stated Complaint: IRREGULAR HB,ELAV BP - Chief complaint Chief Complaint: Cardiac - History obtained from History obtained from: Patient - History of Present Illness Timing: Enter time (22:30), Today Pain level now: 0 Improved by: spontaneously resolved without apparent ameliorating factors Worsened by: no exacerbating factors - Additonal information Additional information: c/o sudden onset rapid and irregular palpitations 10:30 tonight while walking in house. resolved en route to ED, now asymptomatic Review of Systems Cardiac: reports: Palpitations. denies: Chest pain / pressure, Pedal edema, Calf pain Respiratory: reports: Reviewed and negative GI: reports: Reviewed and negative PD PAST MEDICAL HISTORY - Past Medical History Cardiovascular: Arrhythmia Respiratory: None, Sleep apnea Endocrine/Autoimmune: Type 2 diabetes, HyPOthyroidism GI: None : None HEENT: Other Psych: Depression Musculoskeletal: Osteoarthritis Derm: Eczema - Past Surgical History Past Surgical History: No General: Colonoscopy - Present Medications Home Medications: Ambulatory Orders Medication Instructions Recorded Confirmed FLUoxetine [PROzac] 10 mg PO DAILY 06/15/15 05/20/16 Ketorolac [Toradol] 10 mg PO Q6H PRN #14 tablet 06/15/15 05/20/16 metFORMIN [Glucophage] 500 mg PO BID 06/15/15 05/20/16 Atorvastatin [Lipitor] 20 mg PO DAILY 05/20/16 05/20/16 FLUoxetine [PROzac] 20 mg PO DAILY 05/20/16 05/20/16 Levothyroxine [Synthroid] 125 mcg PO DAILY 05/20/16 05/20/16 Lisinopril 10 mg PO DAILY 05/20/16 05/20/16 buPROPion [Wellbutrin Sr] 150 mg PO DAILY 05/20/16 05/20/16 glipiZIDE [Glucotrol] 2.5 mg PO DAILY 05/20/16 05/20/16 - Allergies Allergies/Adverse Reactions: Allergies Allergy/AdvReac Type Severity Reaction Status Date / Time hydrocodone bitartrate * Allergy Intermediate Nausea Verified 03/11/18 20:35 [From Vicodin] acetaminophen [From Vicodin] Allergy Nausea Verified 06/15/15 14:45 - Social History Does the pt smoke?: No Smoking Status: Never smoker Does the pt drink ETOH?: No Does the pt have substance abuse?: No - Immunizations Immunizations are current?: Yes - POLST Patient has POLST: Yes PD ED PE NORMAL - Vitals Vital signs reviewed: Yes - General General: Alert and oriented X 3, No acute distress, Well developed/nourished - Cardiac Cardiac: RRR, No murmur, No gallop, No rub - Respiratory Respiratory: No respiratory distress, Clear bilaterally - Abdomen Abdomen: Soft, Non tender - Derm Derm: Normal color, Warm and dry - Extremities Extremities: No edema Results - Vitals Vitals: Oxygen O2 Source Room air - EKG (time done) No standard instances Rate: Rate (enter#) (93) Rhythm: NSR [place]: LAD Intervals: Normal [place] QRS: Normal Ischemia: Normal ST segments Other comments: Other comments (PAC) - Labs Labs: Laboratory Tests 04/25/19 04/25/19 04/25/19 23:00 23:00 23:00 WBC 10.4 RBC 4.80 Hgb 14.6 Hct 45.8 MCV 95.4 H MCH 30.4 MCHC 31.9 L RDW 13.2 Plt Count 239 MPV 10.1 Neut # (Auto) 6.7 H Lymph # (Auto) 2.0 [place] # (Auto) 1.0 Eos # (Auto) 0.6 Baso # (Auto) 0.1 Absolute Nucleated RBC 0.00 Nucleated RBC % 0.0 Sodium 138 Potassium 4.4 Chloride 102 Carbon Dioxide 22 Anion Gap 14.0 H BUN 13 Creatinine 1.2 Estimated GFR (MDRD) 59 L Glucose 188 H Calcium 9.4 Total Bilirubin 0.6 AST 18 ALT 20 Alkaline Phosphatase 68 Troponin I < 0.04 Total Protein 7.2 Albumin 4.5 Globulin 2.7 Albumin/Globulin Ratio 1.7 Lipase 37 - Rads (name of study) chest xray Radiology: Prelim report reviewed, See rad report PD MEDICAL DECISION MAKING - ED course Complexity details: reviewed results, re-evaluated patient, considered differential, d/w patient Departure - Departure Disposition: 01 Home, Self Care Clinical Impression: Palpitations Condition: Good Health Concerns: palpitations, high blood pressure Plan of Treatment: return if worse, follow up with PCP Care Goals: prevention of symptom recurrence Assessment: see diagnoses Instructions: ED HTN Established, ED Palpitations Follow-Up: Farrukh Lockhart MD [Primary Care Provider] - Discharge Date/Time: 04/26/19 01:38
[2019-04-26 01:32] VITALS: BP 133/88
== END 2019-04-26 01:38 | disposition home or self-care (01) ==
LOC: ED 22:39
DX: R00.2 Palpitations (principal); E11.9 Type 2 diabetes mellitus without complications; Z79.84 Long term (current) use of oral hypoglycemic drugs
CPT/HCPCS: 71045; 80053; 83690; 84484; 85025; 93005; 99283

== ENCOUNTER 2019-06-26 10:51 | Outpatient (CLI) | payer MEDICARE, BC ==
[2019-06-26 11:54] VITALS: BP 112/60
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
== END 2019-06-26 10:52 | disposition home or self-care (01) ==
LOC: SC 10:51
PROVIDERS: ATTEND Nurse Practitioner Family
DX: G47.33 Obstructive sleep apnea (adult) (pediatric) (principal); G47.31 Primary central sleep apnea; G47.00 Insomnia, unspecified
CPT/HCPCS: 99215; G0463; 99212

== ENCOUNTER 2019-08-27 10:10 | Outpatient (CLI) | payer MEDICARE, BC ==
[2019-08-27 11:08] VITALS: BP 112/60
--- NOTE | 2019-08-27 11:08 | SLEEP CARE CONSULTATION ---
Information from patient questionnaire entered by Agata Motley. I have reviewed and concur with the information entered by Agata Motley. This document represents the service I personally performed and the decisions made by me, Susan Kramer, RN, MSN, BRUSHER TENDER. History of Present Illness Previous diagnosis: Mild, Obstructive Sleep Apnea-Hypopnea Syndrome, Central Sleep Apnea-Hypopnea Syndrome AHI: 7.4 Reason for follow up: other (2 MONTH) Equipment type: CPAP Equipment obtained from: [employer] Mask style: Nasal Mask brand: Respironics Backup mask available: Yes Last cushion change: 2 months Prior sleep studies: Yes HPI additional information: The new pressure is more comfortable. Oral dryness is a little better with adjustments and not bothering him as much. The new mask given at last visit is working better - the Dreamwear nasal mask. He contacted [employer] , his new supplier and just re - ordered supplies. For his insomnia concerns, he quit watching the clock. He is having a lot less difficulty falling asleep. He is leaving bedroom sooner if unable to sleep and reading until sleepy. Generally only takes 30-45minutes of reading and will go right to sleep and stay asleep. If he gets up to bathroom on rare occasion, he is now able to go back to sleep. CPAP Compliance Data - Data Reviewed with Patient Average duration of nightly device use: 7H 27M Compliance rate %: 88.3 Current pressure setting (cmH2O): 8-12 Humidity settin Heated hose settin Average residual AHI: 23 Central apnea: 9.4 Obstructive apnea: 5.4 Hypopnea: 8.2 Average large leak: 24 seconds Subjective Missed days of use due to: reports: other (Pimple at mask site that needed healing before could use mask, no further irritation) Patient concerns: reports: mask leak noise ( from mask dislodging most nights. ), dry mouth, nose, throat. denies: aerophagia, mask discomfort, air blowing in eyes, condensation in mask/hose, nasal congestion, epistaxis (mild now ) Observed to snore while using device: No Current pressure setting perceived as: comfortable On therapy, patient: reports: sleeping better, awakening more refreshed, being more awake and alert during the day, more rested overall. denies: drowsiness while driving Initial [place] Sleepiness Scale score: 12 Current [place] Sleepiness Scale score: 4 Allergies and Home Medications Home medication list reviewed: Yes (xeralto was not on last list and taken daily - no changes from last visit) Review of Systems Review of systems same as previous: Yes Physical Exam Blood Pressure: 112/60 Cuff size: long Heart Rate: 70 O2 Saturation: 97 Height: 5 ft 8 in Weight: 201 lb Body Mass Index: 30.5 BMI Classification: Obesity Class 1 Impression and Plan 1. Central and Obstructive Sleep Apnea-Hypopnea Syndrome, mild, with good treatment compliance and elevated residual AHI. . On CPAP therapy, the patient has better sleep quality and is more rested overall. His sleep length increased by 1 hour and 10 minutes and quality improved with application of measures such as covering clock and leaving bedroom to read if unable to sleep discussed at last visit. He is also not falling asleep in the morning when watching TV in the morning anymore. The new CPAP pressure range is more comfortable but elevated residual AHI continues. Thus I will again adjust this time to [id number] after review of present and past compliance reports and sleep studies. I review with Dr. Poole for his imput as the patient did not tolerate the manual titration. In addition, I will order a headgear adaptor for his mask to prevent dislodging and fragmenting sleep. Patient's apnea severity and rationale for treatment to reduce apnea, improve sleep quality and reduce cardiovascular and cerebrovascular events was reviewed. I also reviewed the benefit of consistent device use of CPAP for arrhythmia, diabetes, depression/anxiety * * Change CPAP pressure to 10-13 cmH2O * confer with Dr. Poole * Headgear adaptor * Notify me if snoring with mask or feeling that the pressure is too much or too little * Attempt to lose weight * Return for follow up in 1-2 months , or sooner if concerns arise . I spent 100% of this 35 minute visit face to face with the patient with greater than 50% of this was spent time counseling the patient and coordination of care.
== END 2019-08-27 10:11 | disposition home or self-care (01) ==
LOC: SC 10:10
PROVIDERS: ATTEND Nurse Practitioner Family
DX: G47.33 Obstructive sleep apnea (adult) (pediatric) (principal); G47.61 Periodic limb movement disorder
CPT/HCPCS: 99214; G0463; 99212

== ENCOUNTER 2019-09-09 09:50 | Outpatient (CLI) | payer MEDICARE, BC ==
[2019-09-09 10:17] LABS: BASOPHILS # (AUTO) 0.1 10^3/uL (0.0-0.1); BASOPHILS % (AUTO) 0.8 %; EOSINOPHILS # (AUTO) 0.9 10^3/uL (0.0-0.7); EOSINOPHILS % (AUTO) 9.6 %; LYMPHOCYTES # (AUTO) 1.4 10^3/uL (1.5-3.5); LYMPHOCYTES % (AUTO) 15.2 %; MEAN CORPUSCULAR HEMOGLOBIN 30.1 pg (27.0-31.0); MEAN CORPUSCULAR HGB CONC 31.7 g/dL (32.0-36.0); MEAN CORPUSCULAR VOLUME 95.1 fL (80.0-94.0); MEAN PLATELET VOLUME 9.6 fL (7.4-11.4); MONOCYTES # (AUTO) 0.8 10^3/uL (0.0-1.0); MONOCYTES % (AUTO) 8.7 %; NEUTROPHILS % (AUTO) 65.3 %; PLT - PLATELET COUNT 224 10^3/uL (130-450); RED BLOOD COUNT 4.65 10^6/uL (4.70-6.10); RED CELL DISTRIBUTION WIDTH 13.6 % (12.0-15.0); WHITE BLOOD COUNT 9.2 x10^3/uL (4.8-10.8)
[2019-09-09 10:30] LABS: CALCIUM 9.1 mg/dL (8.5-10.3); CREATININE 1.2 mg/dL (0.6-1.2)
[2019-09-09 10:51] LABS: HB2 TOTAL 14.3 g/dL; HEMOGLOBIN A1C 0.6 g/dL
[2019-09-09 11:14] LABS: THYROID STIMULATING HORMONE 0.34 uIU/mL (0.34-5.60)
[2019-09-09 11:16] LABS: FREE T4 (FREE THYROXINE) 1.18 ng/dL (0.58-1.64)
== END 2019-09-09 09:51 | disposition home or self-care (01) ==
LOC: LAB 09:50
PROVIDERS: ATTEND Family Medicine
DX: E11.9 Type 2 diabetes mellitus without complications (principal); F32.9 Major depressive disorder, single episode, unspecified; E03.9 Hypothyroidism, unspecified
CPT/HCPCS: 36415; 80048; 83036; 84439; 84443; 84481; 85025

== ENCOUNTER 2019-11-04 00:56 | Emergency (ER) | payer MEDICARE, BC ==
[2019-11-04 01:09] VITALS: BP 126/79
== END 2019-11-04 02:32 | disposition left against medical advice (07) ==
LOC: ED 00:56
DX: Z53.21 Procedure and treatment not carried out due to patient leaving prior to being seen by health care provider (principal)

== ENCOUNTER 2019-12-09 15:21 | Outpatient (CLI) | payer MEDICARE, BC ==
[2019-12-09 16:14] VITALS: BP 130/60
--- NOTE | 2019-12-09 16:14 | SLEEP CARE CONSULTATION ---
Information from patient questionnaire entered by Georgette Squires. I have reviewed and concur with the information entered by Georgette Squires. This document represents the service I personally performed and the decisions made by me, Susan Kramer, RN, MSN, MULTIPLE DRILL OPERATOR. History of Present Illness Previous diagnosis: Mild, Obstructive Sleep Apnea-Hypopnea Syndrome, Central Sleep Apnea-Hypopnea Syndrome AHI: 7.4 Reason for follow up: other (6 week) Accompanied by: Spouse Equipment type: CPAP Equipment obtained from: [facility] Mask style: Nasal (Dreamwear nasal) Mask brand: Respironics Backup mask available: Yes Last cushion change: 3 weeks ago CPAP Compliance Data - Data Reviewed with Patient Average duration of nightly device use: 7.25 Compliance rate %: 90 (30 days) Current pressure setting (cmH2O): 10-13 Humidity settin Heated hose settin Average residual AHI: 23 Central apnea: 10.4 Obstructive apnea: 4.4 Hypopnea: 8.2 Average large leak: 1 min 18 sec Subjective Patient concerns: reports: air blowing in eyes (occasionally ), mask leak noise (bothering spouse), dry mouth, nose, throat ( every other day and reservoir empty a few times a week. / oral dryness. ), other (waking with mask dislodged and adjusting most nights. ). denies: aerophagia, mask discomfort, condensation in mask/hose, nasal congestion, epistaxis Observed to snore while using device: Yes (on back ) Current pressure setting perceived as: comfortable On therapy, patient: reports: sleeping better, awakening more refreshed, being more awake and alert during the day, more rested overall (spouse has noted significant reduction in sleepiness symptoms ,, no morning naps anymore ). denies: drowsiness while driving Initial [place] Sleepiness Scale score: 12 Current [place] Sleepiness Scale score: 4 Allergies and Home Medications Known drug allergies: Yes (see above ) Home medication list reviewed: Yes (no changes from last visit) Review of Systems Review of systems same as previous: Yes Physical Exam Blood Pressure: 130/60 Cuff size: long Heart Rate: 83 O2 Saturation: 97 Height: 5 ft 8 in Weight: 205 lb Body Mass Index: 31.1 BMI Classification: Obesity Class 1 Impression and Plan 1. Central and Obstructive Sleep Apnea-Hypopnea Syndrome, mild but severe supine, with good treatment compliance and continued elevated residual AHI. On CPAP therapy, the patient has better sleep quality and is more rested overall. However the patient has not been not able to tolerate higher CPAP range and continues with a high residual AHI, lower CPAP ranges more comfortable but still high residual AHI. Patient had a titration study last year but unable to sleep or tolerate. It seems BiPAP may be best treatment option at this time to tolerate higher pressures and to reduce residual AHI. I will confer with Dr. Poole about changing to BiPAP for treatment starting at 8/4cmH20 due to high central apneas and then adjusting higher as indicated. To prevent mask from dislodging, I ordered the new headgear with arms. He is also advised to change the mask body every 3 months and the mask cushions every 2 weeks to assist maintain seal of mask. For supply questions, I gave him a supply replacement schedule. His non disposable filer can be replaced at 6 months. I a lso wrote an order for patient to get the CPAP supplies needed such as non disposable filter. For oral dryness, he is to reduce the heated hose hose to 2 or lower to allow more moisture delivery and reduce reservoir running out of water as his humidity is now at maximum setting. Printed instructions given for adjusting further adjustments. Patient's apnea severity and rationale for treatment to reduce apnea, improve sleep quality and reduce cardiovascular and cerebrovascular events was reviewed. I also reviewed the benefit of consistent device use of CPAP for arrhythmia, diabetes, depression/anxiety. 2. Insomnia, patient states insomnia continues to be less often. If unable to go to sleep in a short while, he now leaves bedroom and when returns to bed is able to sleep through the night. He is pleased with improved sleep ability. * Switch to BiPAP * Notify me if snoring with mask or feeling that the pressure is too much or too little * Confer with Dr. Poole * Continue to lose weight * Call this office if any problems using CPAP * Return for follow up in 2 months , or sooner if concerns arise Addendum; I conferred with Dr. Poole 12-10-19 and he agreed with plan. A BiPAP will be ordered to replace CPAP for better control of apnea. I called patient 12.11.19 but spouse stated not home. I called again 12-12-19 at 1730 and able to inform of above plan and process. Patient agreed. He is to contact this office if any problems getting his BiPAP or if new pressure uncomfortable. Time Spent with Patient (minutes): 36 I spent 100% of this visit face to face with the patient with greater than 50% of this was spent time counseling the patient and coordination of care.
== END 2019-12-09 15:22 | disposition home or self-care (01) ==
LOC: SC 15:21
PROVIDERS: ATTEND Nurse Practitioner Family
DX: G47.33 Obstructive sleep apnea (adult) (pediatric) (principal); G47.31 Primary central sleep apnea; G47.00 Insomnia, unspecified; E66.9 Obesity, unspecified; Z68.31 Body mass index [BMI] 31.0-31.9, adult
CPT/HCPCS: 99214; G0463; 99212

== ENCOUNTER 2020-02-05 16:22 | Outpatient (CLI) | payer MEDICARE, BC ==
--- NOTE | 2020-02-05 09:28 | SLEEP CARE CONSULTATION ---
Information from patient questionnaire entered by Agata Motley. I have reviewed and concur with the information entered by Agata Motley. This document represents the service I personally performed and the decisions made by me, Susan Kramer, RN, MSN, REAL ESTATE AGENCY PRINCIPAL. History of Present Illness Service Date and Time: 02/05/2020 0900 Previous diagnosis: Mild, Obstructive Sleep Apnea-Hypopnea Syndrome, Central Sleep Apnea-Hypopnea Syndrome AHI: 7.4 Reason for follow up: first compliance (after changing to BiPAP ) Equipment type: BiPAP Equipment obtained from: [facility] Mask style: Nasal Backup mask available: Yes Last cushion change: 1 month ago CPAP Compliance Data - Data Reviewed with Patient Average duration of nightly device use: 8H 27M Compliance rate %: 100 Current pressure setting (cmH2O): 8/4 Humidity settin Heated hose settin Average residual AHI: 22.3 Central apnea: 4.4 Obstructive apnea: 0.3 Hypopnea: 17.7 Average large leak: 26s Subjective Patient concerns: denies: aerophagia, mask discomfort, air blowing in eyes, mask leak noise, condensation in mask/hose, nasal congestion, dry mouth, nose, throat, epistaxis, other (new device resolved oral dryness and is sleeping better) Observed to snore while using device: No Current pressure setting perceived as: comfortable On therapy, patient: reports: sleeping better, awakening more refreshed, being more awake and alert during the day, more rested overall (much better with less naps and shorter naps ). denies: drowsiness while driving, other Initial [place] Sleepiness Scale score: 12 Allergies and Home Medications Home medication list reviewed: No (no changes stated) Review of Systems Review of systems same as previous: Yes Physical Exam Height: 5 ft 8 in Weight: 207 lb (home scale ) Body Mass Index: 31.4 BMI Classification: Obese Impression and Plan 1. Central and Obstructive Sleep Apnea-Hypopnea Syndrome, mild but severe supine with AHI of 51, with good treatment compliance but elevated residual AHI. Patient was changed to a BiPAP mode of therapy due to elevated residual AHI on CPAP as noted in history and past titration study. Since change to BiPAP mode he is sleeping much better and stated he is much more rested resulting in reduced naps in frequency and in length. In addition his oral dryness has resolved. Patient stated he is very pleased with benefit of his BiPAP treatment. He did not have the [place] form to complete to check the subjective difference from his last visit. He states his weight is stable and I reviewed with him how his weight affects his BiPAP pressure needs. He is also obtaining his equipment from his DME as needed. The patients pressure will be changed to 10/6 cmH20 For elevation of residual AHI. Patient advised to contact me if pressure change is uncomfortable so that it can be adjusted. Goals for apnea control discussed. Patient's apnea severity and rationale for treatment to reduce apnea, improve sleep quality and reduce cardiovascular and cerebrovascular events was reviewed. In addition, I reviewed benefit of consistent device use of for his hypertension and depression. * * Change BiPAP pressure to 10/6 cmH2O - done on modem * Notify me if snoring with mask or feeling that the pressure is too much or too little * Attempt to lose weight * Call this office if any problems using CPAP * Return for follow up in 2-4 weeks , or sooner if concerns arise Visit Type: Telehealth Phone (to minimize the risk of COVID-19 exposure, the patient has consented to a telehealth visit and agrees to having their insurance billed.) Location of Provider: Home Patient agrees and consents to this telehealth visit type: Yes Time Spent with Patient (minutes): 10 Provider Statement: I spent 100% of the Telehealth Phone Call with the patient with greater than 50% spent counseling the patient and coordination of care.
== END 2020-02-05 16:23 | disposition home or self-care (01) ==
LOC: SC 16:22
PROVIDERS: ATTEND Nurse Practitioner Family
DX: G47.33 Obstructive sleep apnea (adult) (pediatric) (principal); G47.31 Primary central sleep apnea; E66.9 Obesity, unspecified; Z68.31 Body mass index [BMI] 31.0-31.9, adult

== ENCOUNTER 2020-03-05 13:28 | Outpatient (CLI) | payer MEDICARE, BC ==
--- NOTE | 2020-03-05 09:59 | SLEEP CARE CONSULTATION ---
Information from patient questionnaire entered by Agata Motley. I have reviewed and concur with the information entered by Agata Motley. This document represents the service I personally performed and the decisions made by me, Susan Kramer, RN, MSN, REGULATORY AFFAIRS STRATEGY SPECIALIST. History of Present Illness Service Date and Time: 03/05/2020929 Previous diagnosis: Mild, Obstructive Sleep Apnea-Hypopnea Syndrome, Central Sleep Apnea-Hypopnea Syndrome AHI: 7.4 (supine AHI 51) Reason for follow up: other (pressure change) Equipment type: BiPAP Equipment obtained from: [facility] (getting supplies as needed) Mask style: Nasal Backup mask available: Yes (old) Last cushion change: 1 month CPAP Compliance Data - Data Reviewed with Patient Average duration of nightly device use: 8h 25m Compliance rate %: 96.7 Current pressure setting (cmH2O): 10/6 Humidity settin Heated hose settin Average residual AHI: 14.6 Central apnea: 6.6 Obstructive apnea: 0.3 Hypopnea: 7.7 Average large leak: 1m 28s Subjective Patient concerns: reports: air blowing in eyes (rare and resolves with adjustment). denies: aerophagia, mask discomfort, mask leak noise, condensation in mask/hose, nasal congestion, dry mouth, nose, throat (not since BiPAP 2 months ago) Observed to snore while using device: No Current pressure setting perceived as: comfortable On therapy, patient: reports: sleeping better, awakening more refreshed, being more awake and alert during the day, more rested overall. denies: drowsiness while driving Initial [place] Sleepiness Scale score: 12 Allergies and Home Medications Home medication list reviewed: No (no changes) Physical Exam Height: 5 ft 8 in Impression and Plan 1. Central and Obstructive Sleep Apnea-Hypopnea Syndrome, mild but severe supine, with good treatment compliance and better apnea control. On BiPAP therapy, the patient has better sleep quality and is more rested overall. He is pleased with the benefit of BiPAP treatment and of resolution of dry mouth and throat. The residual AHI reduced from 22.3 to 14.6 with from recent pressure change. I will continue to adjust his BiPAP pressure slightly higher to 12/8 cmH20 to see if more effective. The patient is advised to contact me if the pressure change is at all uncomfortable. Patient states his weight is stable but does not know the exact pounds. I explained how his weight affects his apnea and BIPAP adjustments. Patient's apnea severity and rationale for treatment to reduce apnea, improve sleep quality and reduce hypertension, cardiovascular and cerebrovascular events was reviewed. * * Change BiPAP pressure to 12/8 cmH2O * Notify me if snoring with mask or feeling that the pressure is too much or too little * Call this office if any problems using CPAP * Return for follow up in 1 month , or sooner if concerns arise Visit Type: Telehealth Phone (to reduce risk of Covid 19 exposure) Patient Location: Home Location of Provider: Home Patient agrees and consents to this telehealth visit type: Yes Time Spent with Patient (minutes): 10 Provider Statement: I spent 100% of the Telehealth Phone Call with the patient with greater than 50% spent counseling the patient and coordination of care.
== END 2020-03-05 13:29 | disposition home or self-care (01) ==
LOC: SC 13:28
PROVIDERS: ATTEND Nurse Practitioner Family
DX: G47.31 Primary central sleep apnea (principal); G47.33 Obstructive sleep apnea (adult) (pediatric)

== ENCOUNTER 2020-05-07 09:24 | Outpatient (CLI) | payer MEDICARE, BC ==
--- NOTE | 2020-05-07 09:49 | SLEEP CARE CONSULTATION ---
Information from patient questionnaire entered by Agata Motley. I have reviewed and concur with the information entered by Agata Motley. This document represents the service I personally performed and the decisions made by me, Susan Kramer, RN, MSN, A R SPECIALIST. History of Present Illness Service Date and Time: 05/07/2020929 Previous diagnosis: Mild, Central Sleep Apnea-Hypopnea Syndrome AHI: 7.4 Reason for follow up: other (2 month with pressure change) Equipment type: BiPAP Equipment obtained from: [employer] (getting supplies as needed) Mask style: Nasal (Dreamwear) Backup mask available: Yes (old mask ) Last cushion change: 2 months Prior sleep studies: Yes Year and Where: [facility] 2017 Type of Sleep Study: Polysomnography CPAP Compliance Data - Data Reviewed with Patient Average duration of nightly device use: 8h 9m Compliance rate %: 100 Current pressure setting (cmH2O): 12/8 Humidity settin Heated hose settin Average residual AHI: 10.9 Central apnea: 6.2 Obstructive apnea: 0.6 Hypopnea: 4.1 Average large leak: 5m 24s Subjective Patient concerns: reports: dry mouth, nose, throat (nightly - mild). denies: aerophagia, mask discomfort, air blowing in eyes, mask leak noise (significantly reduced with headgear with arms. ), condensation in mask/hose, nasal congestion, epistaxis, other Observed to snore while using device: No Current pressure setting perceived as: comfortable On therapy, patient: reports: sleeping better ( with pressure increase), awakening more refreshed, being more awake and alert during the day, more rested overall. denies: drowsiness while driving Initial [place] Sleepiness Scale score: 12 Current [place] Sleepiness Scale score: 7 Allergies and Home Medications Known drug allergies: Yes (see list ) Home medication list reviewed: No (no changes) Review of Systems Review of systems same as previous: Yes Physical Exam Blood Pressure: 106/60 Cuff size: long Heart Rate: 67 O2 Saturation: 96 Height: 5 ft 8 in Weight: 205 lb Body Mass Index: 31.1 BMI Classification: Obese Impression and Plan 1. Central and Obstructive Sleep Apnea-Hypopnea Syndrome, mild with supine AHI severe , with good treatment compliance and better apnea control with higher pressure range. On BiPAP therapy, the patient has better sleep quality with higher pressure and lower AHI and is more rested overall. Thus I will change his BiPAP to 14/[id number] to reduce residual AHI further. Patient advised to contact me if pressure change is uncomfortable so that it can be adjusted. Goals for apnea control discussed.Oral dryness can be reduced by adjusting heated hose lower as humidity is at maximum. or by adjusting both settings. Patient advised that chronic oral dryness can affect dental health and advised to follow up with dentist. In addition, there are oral dryness products that can be used. He has used Biotene in past and recommended to restart until oral dryness subsides. Since patient BMI is 31, he is advised of health risks associated with obesity and to work on losing weight. Patient's apnea severity and rationale for treatment to reduce apnea, improve sleep quality and reduce cardiovascular and cerebrovascular events was reviewed. * Change auto BiPAP pressure to 14/10 cmH2O * Notify me if snoring with mask or feeling that the pressure is too much or too little * Implement methods to reduce oral dryness * Attempt to lose weight * Call this office if any problems using CPAP * Return for follow up in 1-2 months , or sooner if concerns arise Visit Type: In Office Time Spent with Patient (minutes): 22 Provider Statement: I spent 100% of the Face to Face Visit with the patient with greater than 50% spent counseling the patient and coordination of care.
[2020-05-07 09:56] VITALS: BP 106/60
== END 2020-05-07 09:25 | disposition home or self-care (01) ==
LOC: SC 09:24
PROVIDERS: ATTEND Nurse Practitioner Family
DX: G47.31 Primary central sleep apnea (principal); G47.33 Obstructive sleep apnea (adult) (pediatric); E66.9 Obesity, unspecified; Z68.31 Body mass index [BMI] 31.0-31.9, adult
CPT/HCPCS: 99213; G0463; 99212

== ENCOUNTER 2020-07-20 15:00 | Outpatient (CLI) | payer MEDICARE, BC ==
[2020-07-20 15:48] VITALS: BP 110/60
--- NOTE | 2020-07-20 15:48 | SLEEP CARE CONSULTATION ---
Information from patient questionnaire entered by Jean Carlos Torres. I have reviewed and concur with the information entered by JeanC arlos Torres. This document represents the service I personally performed and the decisions made by me, Susan Kramer RN, MSN, FLOWERS SALESPERSON. History of Present Illness Service Date and Time: 07/20/2020 1500 Previous diagnosis: Mild, Central Sleep Apnea-Hypopnea Syndrome AHI: 7.4 Reason for follow up: other (2-month pressure change followup) Equipment type: BiPAP Equipment obtained from: [employer] Mask style: Nasal (Dreamwear with arms) Mask brand: Respironics Backup mask available: Yes (old mask ) Last cushion change: about 6 weeks ago Prior sleep studies: Yes Year and Where: 2017 [facility] Type of Sleep Study: Polysomnography Sleep Study - Results Prior sleep studies: Yes CPAP Compliance Data - Data Reviewed with Patient Average duration of nightly device use: 8 h 10 min Compliance rate %: 95 Current pressure setting (cmH2O): 14/10 Humidity settin Heated hose settin Average residual AHI: 13.1 Central apnea: 8.3 Obstructive apnea: 1.0 Hypopnea: 3.8 Average large leak: 6 min 53 sec Subjective Patient concerns: denies: aerophagia, mask discomfort, air blowing in eyes, mask leak noise, condensation in mask/hose, nasal congestion, dry mouth, nose, throat (re solved with reduction of heated hose), epistaxis, other Observed to snore while using device: No Current pressure setting perceived as: comfortable On therapy, patient: reports: sleeping better, awakening more refreshed, being more awake and alert during the day, more rested overall. denies: drowsiness while driving Initial [place] Sleepiness Scale score: 12 (in 2013) Allergies and Home Medications Known drug allergies: Yes Home medication list reviewed: No (no changes ) Review of Systems Review of systems same as previous: Yes Physical Exam Blood Pressure: 110/60 Cuff size: regular Heart Rate: 76 O2 Saturation: 97 Height: 5 ft 8 in Weight: 199 lb Weight change since last visit: lost 6 pounds - goal is to lose about 30 more pounds Body Mass Index: 30.2 BMI Classification: Obese Impression and Plan 1. Central and Obstructive Sleep Apnea-Hypopnea Syndrome, mild but severe supine, with good treatment compliance and mild elevation of residual AHI. With BiPAP pressure increase his residual AHI slightly increased in central apneas. Thus after review of past visit notes since prior to and then since start of BiPAP I will change his BiPAP pressure to 13 / 8 cmH20. The residual AHI with use of CPAP was much greater and in 20s . The goal is to strive for below 5 residual. Unfortunately, the patient cannot sleep much during past sleep studies thus adjustments need to be done in office. On BiPAP therapy, the patient has better sleep quality and is more rested overall. He has continued to lose weight with use of nutrisystem with his spouse. His goal is to lose 30 more pounds which will continue to lower his BiPAP pressure needs. Symptoms to report if significant weight change discussed for further pressure change. Patient's apnea severity and rationale for treatment to reduce apnea, improve sleep quality and reduce cardiovascular and cerebrovascular events was reviewed. I also reviewed the benefit of consistent device use of BiPAP for arrhythmia , diabetes. Since patient has more severe apnea in supine position, patient advised to avoid supine sleep with pillow positioning if unable to use CPAP while ill or if without electricity to reduce apnea risk. * * Change BiPAP pressure to 13/8 cmH2O * Notify me if snoring with mask or feeling that the pressure is too much or too little * Continueto lose weight * Call this office if any problems using CPAP * Return for follow up in 1-2 months , or sooner if concerns arise Visit Type: In Office Time Spent with Patient (minutes): 30 Provider Statement: I spent 100% of the Face to Face Visit with the patient with greater than 50% spent counseling the patient and coordination of care.
== END 2020-07-20 15:01 | disposition home or self-care (01) ==
LOC: SC 15:00
PROVIDERS: ATTEND Nurse Practitioner Family
DX: G47.31 Primary central sleep apnea (principal); G47.33 Obstructive sleep apnea (adult) (pediatric); E66.3 Overweight; Z68.30 Body mass index [BMI] 30.0-30.9, adult
CPT/HCPCS: 99214; G0463; 99212

== ENCOUNTER 2020-09-08 09:24 | Outpatient (CLI) | payer MEDICARE, BC ==
[2020-09-08 09:42] LABS: BASOPHILS # (AUTO) 0.1 10^3/uL (0.0-0.1); BASOPHILS % (AUTO) 0.6 %; EOSINOPHILS # (AUTO) 0.4 10^3/uL (0.0-0.7); EOSINOPHILS % (AUTO) 3.2 %; HGB - HEMOGLOBIN 14.7 g/dL (14.0-18.0); LYMPHOCYTES # (AUTO) 1.5 10^3/uL (1.5-3.5); LYMPHOCYTES % (AUTO) 13.6 %; MEAN CORPUSCULAR HEMOGLOBIN 30.3 pg (27.0-31.0); MEAN CORPUSCULAR HGB CONC 32.7 g/dL (32.0-36.0); MEAN CORPUSCULAR VOLUME 92.8 fL (80.0-94.0); MEAN PLATELET VOLUME 9.6 fL (7.4-11.4); MONOCYTES # (AUTO) 0.9 10^3/uL (0.0-1.0); MONOCYTES % (AUTO) 8.4 %; NEUTROPHILS % (AUTO) 73.6 %; PLT - PLATELET COUNT 264 10^3/uL (130-450); RED BLOOD COUNT 4.85 10^6/uL (4.70-6.10); RED CELL DISTRIBUTION WIDTH 13.5 % (12.0-15.0); WHITE BLOOD COUNT 10.9 x10^3/uL (4.8-10.8)
[2020-09-08 10:00] LABS: ALBUMIN 4.4 g/dL (3.2-5.5); ALKALINE PHOSPHATASE 77 IU/L (42-121); ALT ALANINE AMINOTRANSFERASE 20 IU/L (10-60); AST ASPARTATE AMINOTRANSFERASE 14 IU/L (10-42); BILIRUBIN,TOTAL 0.9 mg/dL (0.2-1.0); BUN - BLOOD UREA NITROGEN 13 mg/dL (6-20); CALCIUM 9.2 mg/dL (8.5-10.3); CARBON DIOXIDE - CO2 26 mmol/L (21-32); CHLORIDE 93 mmol/L (101-111); GLUCOSE 99 mg/dL (70-100); SODIUM 130 mmol/L (135-145)
[2020-09-08 10:01] LABS: ALBUMIN/GLOBULIN RATIO 1.7 (1.0-2.2); CHOL/HDL RATIO 2.5 (<5.0); CHOLESTEROL 125 mg/dL; HDL CHOLESTEROL 50 mg/dL; LDL CHOLESTEROL,CALCULATED 56 mg/dL; LDL/HDL RATIO 1.1 (<3.6); VLDL CHOLESTEROL 19 mg/dL
[2020-09-08 13:43] LABS: HEMOGLOBIN A1c% 6.1 % (4.27-6.07)
== END 2020-09-08 09:25 | disposition home or self-care (01) ==
LOC: LAB 09:24
PROVIDERS: ATTEND Family Medicine
DX: G47.33 Obstructive sleep apnea (adult) (pediatric) (principal); E11.9 Type 2 diabetes mellitus without complications; I48.0 Paroxysmal atrial fibrillation; H91.93 Unspecified hearing loss, bilateral; M19.90 Unspecified osteoarthritis, unspecified site; E03.9 Hypothyroidism, unspecified; E78.2 Mixed hyperlipidemia
CPT/HCPCS: 36415; 80053; 80061; 82043; 82570; 83036; 83721; 84443; 85025

== ENCOUNTER 2020-09-09 08:00 | Outpatient (CLI) | payer MEDICARE, BC ==
[2020-09-09 10:22] LABS: CREATININE,URINE 62.7 mg/dL; MICROALBUMIN,URINE < 0.2 mg/dL (0-300.0)
== END 2020-09-09 08:01 | disposition home or self-care (01) ==
LOC: LAB.R 08:00
PROVIDERS: ATTEND Family Medicine
DX: I48.0 Paroxysmal atrial fibrillation (principal); E11.9 Type 2 diabetes mellitus without complications; E03.9 Hypothyroidism, unspecified; E78.2 Mixed hyperlipidemia; G47.33 Obstructive sleep apnea (adult) (pediatric); M19.90 Unspecified osteoarthritis, unspecified site; F32.9 Major depressive disorder, single episode, unspecified
CPT/HCPCS: 82043; 82570

== ENCOUNTER 2020-09-18 12:15 | Outpatient (CLI) | payer MEDICARE, BC ==
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
== END 2020-09-18 12:16 | disposition home or self-care (01) ==
LOC: SC 12:15
PROVIDERS: ATTEND Nurse Practitioner Family
DX: G47.33 Obstructive sleep apnea (adult) (pediatric) (principal); G47.31 Primary central sleep apnea; E66.3 Overweight; Z68.27 Body mass index [BMI] 27.0-27.9, adult

== ENCOUNTER 2020-12-18 09:46 | Outpatient (CLI) | payer MEDICARE, BC ==
--- NOTE | 2020-12-18 10:14 | SLEEP CARE CONSULTATION ---
Information from patient questionnaire entered by Georgette Squires. I have reviewed and concur with the information entered by Georgette Squires. This document represents the service I personally performed and the decisions made by , Millicent Bridges ARNP. History of Present Illness Service Date and Time: 12/18/2020 0946 Previous diagnosis: Mild, Obstructive Sleep Apnea-Hypopnea Syndrome, Central Sleep Apnea-Hypopnea Syndrome AHI: 7.4 (in 2018) Reason for follow up: three month (with pressure change) Equipment type: BiPAP Equipment obtained from: [employer] (getting supplies as needed) Mask style: Nasal Backup mask available: Yes (old mask) Last cushion change: 1 month Prior sleep studies: Yes Year and Where: 2018 - [facility] Type of Sleep Study: Polysomnography HPI additional information: SINA HERNANDEZ was diagnosed to have mild, AHI 7.4, obstructive/central sleep apnea-hypopnea syndrome and returned today for BIPAP therapy three month pressure change follow-up. CPAP Compliance Data - Data Reviewed with Patient Average duration of nightly device use: 7 hr 46 min Compliance rate %: 91.1 (90 days) Current pressure setting (cmH2O): 13/8 Humidity settin Heated hose settin Average residual AHI: 1.2 Average large leak: 5 min 36 sec Subjective Patient concerns: reports: dry mouth, nose, throat. denies: aerophagia, mask di [place], air blowing in eyes, mask leak noise, condensation in mask/hose, nasal congestion, epistaxis, other Observed to snore while using device: No Current pressure setting perceived as: comfortable On therapy, patient: reports: sleeping better, awakening more refreshed, being more awake and alert during the day, more rested overall. denies: drowsiness while driving Initial [place] Sleepiness Scale score: 12 (in 2012) Current [place] Sleepiness Scale score: 5 Allergies and Home Medications Home medication list reviewed: Yes (No changes) Review of Systems Review of systems same as previous: Yes (no changes) Physical Exam Heart Rate: 74 O2 Saturation: 98 Height: 5 ft 8 in Weight: 195 lb Body Mass Index: 29.6 BMI Classification: Overweight Impression and Plan 1. Obstructive Sleep Apnea-Hypopnea Syndrome, mild, with good treatment compliance and good apnea control. On BIPAP therapy, the patient has better sleep quality and is more rested overall. He has been having some more mouth dryness. Oral dryness can be reduced by adjusting humidity setting higher or heated hose lower or by adjusting both settings. Verbal instructions given on how to change humidity and heated hose settings with rationale explaining why to change. Patient voiced understanding. Patient's apnea severity and rationale for treatment to reduce apnea, improve sleep quality and reduce cardiovascular and cerebrovascular events was reviewed. I also reviewed the benefit of consistent device use of BIPAP for hypertension and arrhythmia. * Continue auto BIPAP pressure at 13/8 cmH2O * Notify me if snoring with mask or feeling that the pressure is too much or too little * Attempt to lose weight * Call this office if any problems using CPAP * Return for follow up in 1 year , or sooner if concerns arise Counseling Topics: Weight loss health impact Visit Type: In Office Time Spent with Patient (minutes): 15 Provider Statement: I spent 100% of the Face to Face Visit with the patient with greater than 50% spent counseling the patient and coordination of care.
== END 2020-12-18 09:47 | disposition home or self-care (01) ==
LOC: SC 09:46
PROVIDERS: ATTEND Nurse Practitioner Family
DX: G47.33 Obstructive sleep apnea (adult) (pediatric) (principal); E66.3 Overweight; Z68.29 Body mass index [BMI] 29.0-29.9, adult
CPT/HCPCS: 99212; G0463

== ENCOUNTER 2021-03-23 13:07 | Emergency (ER) | payer MEDICARE, BC ==
[2021-03-23] MEDS ORDERED: predniSONE 20 MG TABLET PO STA (14:35)
[2021-03-23] MEDS ORDERED: predniSONE 20 MG TABLET ONE (14:50)
--- NOTE | 2021-03-23 15:01 | XRAY Report ---
PROCEDURE: Hand 3 View LT INDICATIONS: L thumb pain/swelling TECHNIQUE: 3 views of the hand(s) acquired. COMPARISON: None. FINDINGS: Bones: No fractures or dislocations. Osteoarthritic changes throughout left hand and wrist are seen most prominent involving first CMC joint. No definite bony erosion. No suspicious bony lesions. Soft tissues: No suspicious soft tissue calcifications. IMPRESSION: No acute left hip fracture or dislocation. 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 Reviewed by: Rubén Aguilar MD on 03/23/2021 2:59 PM PDT Approved by: Rubén Aguilar MD on 03/23/2021 2:59 PM PDT Station ID: [id number]
--- NOTE | 2021-03-23 15:11 | ED Physician Documentation ---
History of Present Illness - Stated complaint Stated Complaint: L HAND PX - Chief complaint Chief Complaint: Ext Problem - History obtained from History obtained from: Patient - Additonal information Additional information: Pt c/o pain at base of L thumb chronically, now markedly worse over past several days. No direct trauma or increased use. No swelling or redness. No arm pain or swelling. No fevers. Pt had same thing on other hand years ago, and had some sort of surgical intervention. He has a hand specialty appt coming up in a month, but doesn't want to wait that long. Review of Systems Ten Systems: 10 systems reviewed and negative Constitutional: reports: Reviewed and negative Eyes: reports: Reviewed and negative Ears: reports: Reviewed and negative Nose: reports: Reviewed and negative Throat: reports: Reviewed and negative Cardiac: reports: Reviewed and negative Respiratory: reports: Reviewed and negative GI: reports: Reviewed and negative : reports: Reviewed and negative Skin: reports: Reviewed and negative Musculoskeletal: reports: Extremity pain Neurologic: reports: Reviewed and negative Psychiatric: reports: Reviewed and negative Endocrine: reports: Reviewed and negative Immunocompromised: reports: Reviewed and negative PD PAST MEDICAL HISTORY - Past Medical History Cardiovascular: Atrial fibrillation, Arrhythmia Respiratory: Sleep apnea, CPAP use Endocrine/Autoimmune: Type 2 diabetes, HyPOthyroidism GI: None : None HEENT: Other Psych: Depression Musculoskeletal: Osteoarthritis Derm: Eczema - Past Surgical History Past Surgical History: No General: Colonoscopy - Present Medications Home Medications: Ambulatory Orders Medication Instructions Recorded Confirmed FLUoxetine [PROzac] 10 mg PO DAILY 06/15/15 03/23/21 metFORMIN [Glucophage] 500 mg PO BID 06/15/15 03/23/21 Atorvastatin [Lipitor] 20 mg PO DAILY 05/20/16 03/23/21 Levothyroxine [Synthroid] 125 mcg PO DAILY 05/20/16 03/23/21 buPROPion [Wellbutrin Sr] 150 mg PO DAILY 05/20/16 03/23/21 glipiZIDE [Glucotrol] 2.5 mg PO DAILY 05/20/16 03/23/21 lisinopriL [Lisinopril] 10 mg PO DAILY 05/20/16 03/23/21 Cholecalciferol (Vitamin D3) 2,000 unit PO DAILY 03/23/21 03/23/21 [Vitamin D3] Diltiazem HCl [Cardizem LA] 120 mg PO DAILY 03/23/21 03/23/21 Insulin Glargine [Lantus Solostar] 20 units SQ DAILY PM 03/23/21 03/23/21 Rivaroxaban [Xarelto] 20 mg PO DAILY 03/23/21 03/23/21 Tramadol HCl [Ultram] 50 mg PO Q6HR PRN #15 tablet 03/23/21 predniSONE [Deltasone] 60 mg PO DAILY 5 Days #15 tablet 03/23/21 - Allergies Allergies/Adverse Reactions: Allergies Allergy/AdvReac Type Severity Reaction Status Date / Time hydrocodone bitartrate * Allergy Intermediate Nausea Verified 03/23/21 13:10 [From Vicodin] acetaminophen [From Vicodin] Allergy Nausea Verified 03/23/21 13:10 - Social History Does the pt smoke?: No Smoking Status: Never smoker Does the pt drink ETOH?: No Does the pt have substance abuse?: No - Immunizations Immunizations are current?: Yes - POLST Patient has POLST: Yes PD ED PE NORMAL - Vitals Vital signs reviewed: Yes - General General: Alert and oriented X 3, No acute distress, Well developed/nourished - HEENT HEENT: Atraumatic, PERRL, EOMI, Moist mucous membranes - Neck Neck: Supple, no meningeal sign - Cardiac Cardiac: Strong equal pulses - Respiratory Respiratory: No respiratory distress - Derm Derm: Normal color, Warm and dry, No rash - Extremities Extremities: No deformity, No edema, Other (TTP over L 1st CMC and MCP joints. No deformity/swelling. No redness.) - Neuro Neuro: Alert and oriented X 3 - Psych Psych: Normal mood, Normal affect Results - Vitals Vitals: Vital Signs - 24 hr 03/23/21 03/23/21 13:11 15:14 Temperature 36.2 C L 97.9 C H Heart Rate 76 70 Respiratory 16 14 Rate Blood Pressure 139/65 H 128/64 O2 Saturation 98 98 Oxygen O2 Source Room air - Rads (name of study) L hand XR Radiology: Final report received, EMP read indepedently, See rad report (OA, most prominent in 1st CMC joint.) PD MEDICAL DECISION MAKING - ED course Complexity details: reviewed results, re-evaluated patient, considered differential, d/w patient ED course: D/w pt that XR shows OA. Have given pt symptomatic treatment, and some other op tions for hand specialty follow-up. Departure - Departure Disposition: 01 Home, Self Care Clinical Impression: Pain of left thumb Condition: Stable Instructions: Osteoarthritis Thumb Follow-Up: Marcelo Jackson MD [Physician No Access] - Nakul Bone MD [Physician No Access] - Prescriptions: Tramadol HCl [Ultram] 50 mg PO Q6HR PRN #15 tablet PRN Reason: Pain predniSONE [Deltasone] 60 mg PO DAILY 5 Days #15 tablet Comments: Your x-ray does not show any acute findings. You most likely have some inflammation of the joints in the hand connect to the thumb and wrist. Please continue your plans to follow-up with hand specialist. If you would like to try to get an earlier appointment, you may call the offices of the specialists listed here. You may take the medications prescribed as directed and as needed. You may also take ibuprofen 600 mg every 6 hours as needed to help with some of the pain and inflammation, as well. Discharge Date/Time: 03/23/21 15:16
[2021-03-23 15:16] VITALS: BP 128/64
== END 2021-03-23 15:16 | disposition home or self-care (01) ==
LOC: ED 13:07
DX: M19.042 Primary osteoarthritis, left hand (principal); M19.032 Primary osteoarthritis, left wrist; M79.645 Pain in left finger(s); E11.9 Type 2 diabetes mellitus without complications; Z79.4 Long term (current) use of insulin; I48.91 Unspecified atrial fibrillation; Z79.01 Long term (current) use of anticoagulants
CPT/HCPCS: 73130; 99283; 99284; J7512

== ENCOUNTER 2021-05-05 10:57 | Outpatient (CLI) | payer MEDICARE, BC ==
[2021-05-05 11:24] LABS: BASOPHILS # (AUTO) 0.1 10^3/uL (0.0-0.1); BASOPHILS % (AUTO) 0.7 %; EOSINOPHILS # (AUTO) 0.3 10^3/uL (0.0-0.7); EOSINOPHILS % (AUTO) 4.4 %; HCT - HEMATOCRIT 40.3 % (42.0-52.0); HGB - HEMOGLOBIN 13.3 g/dL (14.0-18.0); LYMPHOCYTES # (AUTO) 1.2 10^3/uL (1.5-3.5); LYMPHOCYTES % (AUTO) 16.7 %; MEAN CORPUSCULAR HEMOGLOBIN 30.5 pg (27.0-31.0); MEAN CORPUSCULAR VOLUME 92.4 fL (80.0-94.0); MEAN PLATELET VOLUME 9.7 fL (7.4-11.4); MONOCYTES # (AUTO) 0.9 10^3/uL (0.0-1.0); MONOCYTES % (AUTO) 12.9 %; NEUTROPHILS # (AUTO) 4.5 10^3/uL (1.5-6.6); NEUTROPHILS % (AUTO) 64.9 %; PLT - PLATELET COUNT 239 10^3/uL (130-450); RED BLOOD COUNT 4.36 10^6/uL (4.70-6.10); WHITE BLOOD COUNT 6.9 x10^3/uL (4.8-10.8)
[2021-05-05 11:43] LABS: ALBUMIN 4.5 g/dL (3.2-5.5); ALBUMIN/GLOBULIN RATIO 1.7 (1.0-2.2); ALKALINE PHOSPHATASE 72 IU/L (42-121); ALT ALANINE AMINOTRANSFERASE 20 IU/L (10-60); AST ASPARTATE AMINOTRANSFERASE 15 IU/L (10-42); BILIRUBIN,TOTAL 0.6 mg/dL (0.2-1.0); BUN - BLOOD UREA NITROGEN 19 mg/dL (6-20); CALCIUM 9.1 mg/dL (8.5-10.3); CARBON DIOXIDE - CO2 25 mmol/L (21-32); CHLORIDE 102 mmol/L (101-111); CHOL/HDL RATIO 3.1 (<5.0); CHOLESTEROL 141 mg/dL; CREATININE 1.1 mg/dL (0.6-1.2); GFR - MDRD 65 (>89); GLUCOSE 124 mg/dL (70-100); HDL CHOLESTEROL 46 mg/dL; LDL CHOLESTEROL,CALCULATED 75 mg/dL; LDL/HDL RATIO 1.6 (<3.6); POTASSIUM 5.3 mmol/L (3.5-5.0); SODIUM 136 mmol/L (135-145); TOTAL PROTEIN 7.1 g/dL (6.7-8.2); TRIGLYCERIDES 102 mg/dL; VLDL CHOLESTEROL 20 mg/dL
[2021-05-05 11:55] LABS: THYROID STIMULATING HORMONE 0.02 uIU/mL (0.34-5.60)
[2021-05-05 12:08] LABS: ESTIMATED AVERAGE GLUCOSE 151 mg/dL (70-100); HEMOGLOBIN A1c% 6.9 % (4.27-6.07)
[2021-05-05 12:28] LABS: FREE T4 (FREE THYROXINE) 2.59 ng/dL (0.58-1.64)
== END 2021-05-05 10:58 | disposition home or self-care (01) ==
LOC: LAB 10:57
PROVIDERS: ATTEND Internal Medicine
DX: I10 Essential (primary) hypertension (principal); E78.2 Mixed hyperlipidemia; E11.9 Type 2 diabetes mellitus without complications; Z12.5 Encounter for screening for malignant neoplasm of prostate; E03.9 Hypothyroidism, unspecified
CPT/HCPCS: 36415; 80053; 80061; 83036; 84439; 84443; 85025; G0103; 83721; 84153

== ENCOUNTER 2021-11-08 07:59 | Outpatient (CLI) | payer MEDICARE, BC ==
[2021-11-08 08:21] LABS: BASOPHILS # (AUTO) 0.1 10^3/uL (0.0-0.1); BASOPHILS % (AUTO) 0.6 %; EOSINOPHILS # (AUTO) 0.4 10^3/uL (0.0-0.7); EOSINOPHILS % (AUTO) 4.5 %; HCT - HEMATOCRIT 41.6 % (42.0-52.0); HGB - HEMOGLOBIN 13.7 g/dL (14.0-18.0); LYMPHOCYTES # (AUTO) 1.7 10^3/uL (1.5-3.5); LYMPHOCYTES % (AUTO) 18.1 %; MEAN CORPUSCULAR HGB CONC 32.9 g/dL (32.0-36.0); MEAN CORPUSCULAR VOLUME 94.1 fL (80.0-94.0); MEAN PLATELET VOLUME 9.7 fL (7.4-11.4); MONOCYTES # (AUTO) 0.9 10^3/uL (0.0-1.0); MONOCYTES % (AUTO) 9.6 %; NEUTROPHILS # (AUTO) 6.3 10^3/uL (1.5-6.6); NEUTROPHILS % (AUTO) 66.7 %; PLT - PLATELET COUNT 224 10^3/uL (130-450); RED BLOOD COUNT 4.42 10^6/uL (4.70-6.10); RED CELL DISTRIBUTION WIDTH 14.7 % (12.0-15.0); WHITE BLOOD COUNT 9.5 x10^3/uL (4.8-10.8)
[2021-11-08 08:40] LABS: ALBUMIN 4.4 g/dL (3.2-5.5); ALBUMIN/GLOBULIN RATIO 1.9 (1.0-2.2); ALKALINE PHOSPHATASE 67 IU/L (42-121); ALT ALANINE AMINOTRANSFERASE 27 IU/L (10-60); AST ASPARTATE AMINOTRANSFERASE 19 IU/L (10-42); BILIRUBIN,TOTAL 0.6 mg/dL (0.2-1.0); BUN - BLOOD UREA NITROGEN 14 mg/dL (6-20); CALCIUM 9.1 mg/dL (8.5-10.3); CARBON DIOXIDE - CO2 25 mmol/L (21-32); CHLORIDE 105 mmol/L (101-111); CHOL/HDL RATIO 3.3 (<5.0); CHOLESTEROL 196 mg/dL; CREATININE 1.2 mg/dL (0.6-1.2); GFR - MDRD 59 (>89); GLUCOSE 109 mg/dL (70-100); HDL CHOLESTEROL 60 mg/dL; LDL CHOLESTEROL,CALCULATED 106 mg/dL; LDL/HDL RATIO 1.8 (<3.6); POTASSIUM 4.1 mmol/L (3.5-5.0); SODIUM 141 mmol/L (135-145); TOTAL PROTEIN 6.7 g/dL (6.7-8.2); TRIGLYCERIDES 150 mg/dL; VLDL CHOLESTEROL 30 mg/dL
[2021-11-08 08:50] LABS: THYROID STIMULATING HORMONE 34.5 uIU/mL (0.34-5.60)
[2021-11-08 09:55] LABS: FREE T4 (FREE THYROXINE) 0.76 ng/dL (0.58-1.64)
[2021-11-08 10:18] LABS: ESTIMATED AVERAGE GLUCOSE 157 mg/dL (70-100); HEMOGLOBIN A1c% 7.1 % (4.27-6.07)
[2021-11-10 16:07] LABS: THYROID PEROXIDASE ANTIBODIES 47 IU/mL (<9)
== END 2021-11-08 08:00 | disposition home or self-care (01) ==
LOC: LAB 07:59
PROVIDERS: ATTEND Internal Medicine
DX: I10 Essential (primary) hypertension (principal); E11.9 Type 2 diabetes mellitus without complications; E03.9 Hypothyroidism, unspecified
CPT/HCPCS: 36415; 80053; 80061; 83036; 83721; 84439; 84443; 85025; 86376; 86800

== ENCOUNTER 2021-12-14 09:24 | Outpatient (CLI) | payer MEDICARE, BC ==
[2021-12-14 18:29] LABS: THYROID STIMULATING HORMONE 79.15 uIU/mL (0.34-5.60)
[2021-12-14 19:38] LABS: FREE T4 (FREE THYROXINE) 0.35 ng/dL (0.58-1.64)
== END 2021-12-14 09:25 | disposition home or self-care (01) ==
LOC: LAB 09:24
PROVIDERS: ATTEND Internal Medicine
DX: E03.9 Hypothyroidism, unspecified (principal)
CPT/HCPCS: 36415; 84439; 84443

== ENCOUNTER 2021-12-29 08:29 | Outpatient (CLI) | payer MEDICARE, BC ==
[2021-12-29 09:01] LABS: ALBUMIN 4.6 g/dL (3.2-5.5); ALBUMIN/GLOBULIN RATIO 1.8 (1.0-2.2); BILIRUBIN,TOTAL 0.8 mg/dL (0.2-1.0); CALCIUM 9.4 mg/dL (8.5-10.3); CREATININE 1.3 mg/dL (0.6-1.2); POTASSIUM 4.8 mmol/L (3.5-5.0); TOTAL PROTEIN 7.1 g/dL (6.7-8.2)
[2021-12-29 10:50] LABS: THYROID STIMULATING HORMONE 60.38 uIU/mL (0.34-5.60)
[2021-12-29 11:24] LABS: FREE T4 (FREE THYROXINE) 0.53 ng/dL (0.58-1.64)
[2021-12-29 12:47] LABS: ESTIMATED AVERAGE GLUCOSE 137 mg/dL (70-100); HEMOGLOBIN A1c% 6.4 % (4.27-6.07)
== END 2021-12-29 08:30 | disposition home or self-care (01) ==
LOC: LAB 08:29
PROVIDERS: ATTEND Internal Medicine
DX: E11.9 Type 2 diabetes mellitus without complications (principal); E06.3 Autoimmune thyroiditis
CPT/HCPCS: 36415; 80053; 83036; 84439; 84443

== ENCOUNTER 2022-04-08 16:52 | Outpatient (CLI) | payer MEDICARE, BC ==
--- NOTE | 2022-04-08 17:48 | Ultrasound Report ---
PROCEDURE: Head or Neck Soft Tissue INDICATIONS: HYPOTHYROID TECHNIQUE: Real time scanning was performed of the neck region of interest, with image documentation . COMPARISON: None. FINDINGS: Right and left lobes of thyroid measure 4.3 x 1.1 x 1.2 cm and 4.9 x 2.6 x 1.1 cm respectively. Isthm us thickness is 0.4 cm it. The thyroid echotexture is heterogenous without focal nodule IMPRESSION: Atrophic heterogenous thyroid without focal nodule Reviewed by: Clayton Trevino MD on 04/08/2022 4:46 PM AKDT Approved by: Clayton Trevino MD on 04/08/2022 4:46 PM AKDT Station ID: [id number]
== END 2022-04-08 16:53 | disposition home or self-care (01) ==
LOC: DI 16:52
PROVIDERS: ATTEND Registered Nurse
DX: E03.9 Hypothyroidism, unspecified (principal); E03.4 Atrophy of thyroid (acquired)

== ENCOUNTER 2022-07-21 17:02 | Emergency (ER) | payer MEDICARE, BC ==
--- NOTE | 2022-07-21 17:52 | ED Physician Documentation ---
PD HPI LOWER EXT INJURY - Stated complaint Stated Complaint: R FOOT PX - Chief complaint Chief Complaint: Wound - History obtained from History obtained from: Patient - History of Present Illness PD HPI LOW EXT INJURY LOCATION: Right, Foot Type of injury: No: Fall, Twist Where injury occurred: Other (while on vacation in [place] area of [place]. Was not hiking/out in [place]. No noted injury. Developed swelling/tender dorsum of foot. Now bruising color spread to base of toes. No skin lesions.) Timing - onset: How many days ago (3) Timing - duration: Days Timing - details: Abrupt onset, Still present Worsened by: Palpating Associated symptoms: Swelling, Discolored (has bruising color developing in area and to base of toes dorsally.). No: Weakness, Numbness Contributing factors: Anticoagulated Similar symptoms before: Has not had sx before Recently seen: Not recently seen Review of Systems Constitutional: denies: Fever, Chills Cardiac: denies: Chest pain / pressure, Palpitations, Calf pain Respiratory: denies: Dyspnea, Cough Skin: denies: Abrasion (s), Laceration (s) PD PAST MEDICAL HISTORY - Past Medical History Cardiovascular: Atrial fibrillation, Arrhythmia Respiratory: Sleep apnea, CPAP use Endocrine/Autoimmune: Type 2 diabetes, HyPOthyroidism GI: None : None HEENT: Other Psych: Depression Musculoskeletal: Osteoarthritis Derm: Eczema - Past Surgical History Past Surgical History: No General: Colonoscopy - Present Medications Home Medications: Ambulatory Orders Medication Instructions Recorded Confirmed FLUoxetine [PROzac] 10 mg PO DAILY 06/15/15 03/23/21 metFORMIN [Glucophage] 500 mg PO BID 06/15/15 03/23/21 Atorvastatin [Lipitor] 20 mg PO DAILY 05/20/16 03/23/21 Levothyroxine [Synthroid] 125 mcg PO DAILY 05/20/16 03/23/21 buPROPion [Wellbutrin Sr] 150 mg PO DAILY 05/20/16 03/23/21 glipiZIDE [Glucotrol] 2.5 mg PO DAILY 05/20/16 03/23/21 lisinopriL [Lisinopril] 10 mg PO DAILY 05/20/16 03/23/21 Cholecalciferol (Vitamin D3) 2,000 unit PO DAILY 03/23/21 03/23/21 [Vitamin D3] Diltiazem HCl [Cardizem LA] 120 mg PO DAILY 03/23/21 03/23/21 Insulin Glargine [Lantus Solostar] 20 units SQ DAILY PM 03/23/21 03/23/21 Rivaroxaban [Xarelto] 20 mg PO DAILY 03/23/21 03/23/21 Tramadol HCl [Ultram] 50 mg PO Q6HR PRN #15 tablet 03/23/21 predniSONE [Deltasone] 60 mg PO DAILY 5 Days #15 tablet 03/23/21 - Allergies Allergies/Adverse Reactions: Allergies Allergy/AdvReac Type Severity Reaction Status Date / Time hydrocodone bitartrate * Allergy Intermediate Nausea Verified 07/21/22 17:11 [From Vicodin] acetaminophen [From Vicodin] Allergy Nausea Verified 07/21/22 17:11 - Social History Does the pt smoke?: No Smoking Status: Never smoker Does the pt drink ETOH?: No Does the pt have substance abuse?: No - Immunizations Immunizations are current?: Yes - POLST Patient has POLST: Yes PD ED PE NORMAL - Vitals Vital signs reviewed: Yes - General General: Alert and oriented X 3, No acute distress, Well developed/nourished - Extremities Extremities: No edema, No calf tenderness / cord, Other (dorsum right foot overlying distal 3rd/4th MTs with area of soft tissue local swelling and faint purple color. No redness nor warmth. No skin lesions. Distal to that, and to base of dorsal toes 2-5 has some purple bruising color. Not tender in those areas though. ) - Neuro Neuro: Alert and oriented X 3, No motor deficit, Normal speech. No: No sensory deficit (somewhat decreased sensation generally in feet bilaterally. ) Results - Vitals Vitals: Vital Signs - 24 hr 07/21/22 07/21/22 17:09 19:30 Temperature 36.5 C Heart Rate 81 83 Respiratory 16 16 Rate Blood Pressure 118/80 144/108 H O2 Saturation 98 99 Oxygen O2 Source Room air - Rads (name of study) right foot Radiology: Prelim report reviewed (no acute fractures/changes. ), See rad report Departure - Departure Disposition: 01 Home, Self Care Clinical Impression: Hematoma of right foot Condition: Stable Record reviewed to determine appropriate education?: Yes Instructions: ED Hematoma Follow-Up: Stephanie Johnson ARNP [Primary Care Provider] - Mari Antony DPM [Provider Admit Priv/Credential] - Comments: Most importantly, this does not look to be an infection or abscess. I presume there was some mild inadvertent injury that caused a small blood vessel to pop open creating the hematoma and this is now spreading under the skin. Warm moist towels to the area can help absorb a little faster. Tylenol if needed for pains. I would anticipate this steadily improving over the next several days to a week or so. 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 Discharge Date/Time: 07/21/22 19:33
[2022-07-21 19:31] VITALS: BP 144/108
--- NOTE | 2022-07-21 21:12 | XRAY Report ---
PROCEDURE: Foot 3 View RT INDICATIONS: foot pain and swelling TECHNIQUE: 3 views of the foot were acquired. COMPARISON: None FINDINGS: Bones: No fractures or dislocations. No suspicious bony lesions. Soft tissues: No tibiotalar joint effusion. Vascular calcifications are present IMPRESSION: No acute osseous abnormality. If symptoms persist, follow-up radiographs and/or CT may be helpful for further evaluation. Reviewed by: Cruz Arzola MD on 07/21/2022 9:10 PM PDT Approved by: Cruz Arzola MD on 07/21/2022 9:10 PM PDT Station ID: [id number]
== END 2022-07-21 19:33 | disposition home or self-care (01) ==
LOC: ED 17:02
DX: S90.31XA Contusion of right foot, initial encounter (principal); X58.XXXA Exposure to other specified factors, initial encounter; I48.91 Unspecified atrial fibrillation; E11.9 Type 2 diabetes mellitus without complications; Z79.4 Long term (current) use of insulin; Z79.01 Long term (current) use of anticoagulants
CPT/HCPCS: 99282; 99283

== ENCOUNTER 2022-09-12 08:54 | Outpatient (CLI) | payer MEDICARE, BC ==
[2022-09-12 09:49] LABS: THYROID STIMULATING HORMONE < 0.08 uIU/mL (0.34-5.60)
[2022-09-12 09:51] LABS: FREE T4 (FREE THYROXINE) 1.26 ng/dL (0.58-1.64)
== END 2022-09-12 08:55 | disposition home or self-care (01) ==
LOC: LAB 08:54
PROVIDERS: ATTEND Student in an Organized Health Care Education/Training Program
DX: E03.9 Hypothyroidism, unspecified (principal)
CPT/HCPCS: 36415; 84439; 84443

== ENCOUNTER 2022-09-20 09:36 | Outpatient (CLI) | payer MEDICARE, BC ==
[2022-09-20 10:11] VITALS: BP 120/64
--- NOTE | 2022-09-20 10:11 | SLEEP CARE CONSULTATION ---
Information from patient questionnaire entered by Gisell Plummer. I have reviewed and concur with the information entered by Gisell Plummer. This document represents the service I personally performed and the decisions made by , Millicent Bridges ARNP. History of Present Illness Service Date and Time: 09/20/2022 0936 Previous diagnosis: Mild, Obstructive Sleep Apnea-Hypopnea Syndrome, Central Sleep Apnea-Hypopnea Syndrome AHI: 7.4 (in 2018) Reason for follow up: other (4 MONTH F/U LAST SEEN 04/2022) Equipment type: BiPAP (TORRES) Equipment obtained from: [facility] (getting supplies as needed) Mask style: Nasal Backup mask available: Yes (old mask) Last cushion change: couple months Prior sleep studies: Yes Year and Where: 2017 - [facility] Type of Sleep Study: Polysomnography HPI additional information: ISNA HERNANDEZ was diagnosed to have mild, AHI 7.4, obstructive/central sleep apnea-hypopnea syndrome and returned today for BIPAP therapy four month follow- up. Sleep Study - Results Type of Sleep Study: Polysomnography Prior sleep studies: Yes Year and Where: 2017 - [facility] CPAP Compliance Data - Data Reviewed with Patient Average duration of nightly device use: 7 hours 5 mins Compliance rate %: 72.2 (79/80 days used) Current pressure setting (cmH2O): 09/06 Average residual AHI: 17.3 Central apnea: 10.4 Obstructive apnea: 2 Hypopnea: 4.9 Average large leak: 32 secs Subjective Missed days of use due to: reports: other (power outages; will take off mask because he cannot sleep) Patient concerns: reports: air blowing in eyes (occasional), dry mouth, nose, throat. denies: aerophagia, mask discomfort, mask leak noise, condensation in mask/hose, nasal congestion, epistaxis Observed to snore while using device: No Current pressure setting perceived as: comfortable On therapy, patient: reports: sleeping better, awakening more refreshed, being more awake and alert during the day, more rested overall. denies: drowsiness while driving Initial [place] Sleepiness Scale score: 12 (in 2012) Current [place] Sleepiness Scale score: 7 (09/20/2022) Allergies and Home Medications Drug allergies reviewed: Yes (as listed in EMR) Home medication list reviewed: Yes (reduced Synthroid) Review of Systems Review of systems same as previous: Yes (no changes) Physical Exam Vital signs obtained and entered by: GISELL Howard MA Blood Pressure: 120/64 (LEFT ARM) Cuff size: regular Heart Rate: 62 O2 Saturation: 98 Height: 5 ft 8 in Weight: 201 lb Body Mass Index: 30.5 BMI Classification: Obese Impression and Plan 1. Obstructive/Central Sleep Apnea-Hypopnea Syndrome, mild, with good treatment compliance and fair apnea control with elevated residual AHI. On BiPAP therapy, the patient has better sleep quality and is more rested overall. The patients pressure will be changed to autoCPAP 14/8 cmH20 for elevation of residual AHI. Patient advised to contact me if pressure change is uncomfortable so that it can be adjusted. Goals for apnea control discussed. Patient has problems with falling asleep. He has tried Benadryl and this did help him fall asleep for a while but then it did not work for him. He states sometimes his mind will not shut off and he will not be able to fall asleep. He will get up and read until sleepy enough to fall asleep. He also had trouble with falling asleep when his is watching TV, the noise will keep him awake. He had gotten some ear plugs to wear at night and this helps 90% of the time. I advised him that they may look into headphones for his so he cannot hear the TV and she can. I also advised that he should write the things that are on his mind down to help calm his mind for sleep. He voiced understanding and will try this. Patient's apnea severity and rationale for treatment to reduce apnea, improve sleep quality and reduce cardiovascular and cerebrovascular events was reviewed. I also reviewed the benefit of consistent device use of BiPAP for hypertension and arrhythmia. 2. Obesity, unspecified. Currently patients BMI is 30.5. Obesity increases the risk of apnea, BiPAP pressure requirements and overall health risks especially cardiovascular and diabetes. Thus patient is advised to lose weight. * Change BiPAP pressure to 14/8 cmH2O * Notify me if snoring with mask or feeling that the pressure is too much or too little * Attempt to lose weight * Call this office if any problems using BiPAP * Return for follow up in 2-3 months, or sooner if concerns arise Counseling Topics: Spare mask, Weight loss health impact Visit Type: In Office Time Spent with Patient (minutes): 20 Provider Statement: I spent 100% of the Face to Face Visit with the patient with greater than 50% spent counseling the patient and coordination of care.
== END 2022-09-20 09:37 | disposition home or self-care (01) ==
LOC: SC 09:36
PROVIDERS: ATTEND Nurse Practitioner Family
DX: G47.31 Primary central sleep apnea (principal); G47.33 Obstructive sleep apnea (adult) (pediatric); E66.9 Obesity, unspecified; Z68.30 Body mass index [BMI] 30.0-30.9, adult
CPT/HCPCS: 99213; G0463; 99212

== ENCOUNTER 2022-11-09 09:13 | Outpatient (CLI) | payer MEDICARE, BC ==
[2022-11-09 09:47] VITALS: BP 112/68
--- NOTE | 2022-11-09 09:47 | SLEEP CARE CONSULTATION ---
Information from patient questionnaire entered by Gisell Plummer. I have reviewed and concur with the information entered by Gisell Plummer. This document represents the service I personally performed and the decisions made by , Millicent Bridges ARNP. History of Present Illness Service Date and Time: 11/09/2022912 Previous diagnosis: Mild, Obstructive Sleep Apnea-Hypopnea Syndrome, Central Sleep Apnea-Hypopnea Syndrome AHI: 7.4 (in 2018) Reason for follow up: other (SIX WEEK F/U PRESSURE CHANGE SD CARD NEEDED) Equipment type: BiPAP (RESMED) Equipment obtained from: [facility] (getting supplies as needed) Mask style: Nasal Backup mask available: No (will keep old mask when replaced) Last cushion change: 2 months Prior sleep studies: Yes Year and Where: 2017 - [facility] Type of Sleep Study: Polysomnography HPI additional information: SINA HERNANDEZ was diagnosed to have mild, AHI 7.4, obstructive sleep apnea- hypopnea syndrome and returned today for BIPAP therapy six week with pressure change follow-up. Sleep Study - Results Type of Sleep Study: Polysomnography Prior sleep studies: Yes Year and Where: 2017 - [facility] CPAP Compliance Data - Data Reviewed with Patient Average duration of nightly device use: 6 hours 26 mins Compliance rate %: 76.7 (30 days used; 10/10/22-11/08/22) Current pressure setting (cmH2O): 14/8 Average residual AHI: 18.2 Central apnea: 13.8 Obstructive apnea: 2.1 Hypopnea: 2.3 Average large leak: 0 Subjective Missed days of use due to: reports: travel (vacation, had no water for PAP machine) Patient concerns: reports: dry mouth, nose, throat. denies: aerophagia, mask discomfort, air blowing in eyes, mask leak noise, condensation in mask/hose, nasal congestion, epistaxis Observed to snore while using device: No Current pressure setting perceived as: comfortable On therapy, patient: reports: other (does not notice difference in sleep with using BIPAP; not dozing off during day like before). denies: drowsiness while driving Initial [place] Sleepiness Scale score: 12 (in 2012) Current [place] Sleepiness Scale score: 2 Allergies and Home Medications Drug allergies reviewed: Yes (as listed in EMR) Home medication list reviewed: Yes (no changes) Review of Systems Review of systems same as previous: Yes (no changes) Physical Exam Vital signs obtained and entered by: GISELL Howard MA Blood Pressure: 112/68 (LEFT ARM) Cuff size: regular Heart Rate: 75 O2 Saturation: 94 Height: 5 ft 8 in Weight: 200 lb 12.8 oz Body Mass Index: 30.5 BMI Classification: Obese Impression and Plan 1. Obstructive Sleep Apnea-Hypopnea Syndrome, mild, with good treatment compliance and fair apnea control. On BIPAP therapy, the patient states he takes less naps when watching television but overall does not feel a great difference in his overall sleep quality. Patient is a very light sleeper and has found finally a noise field services director to help him sleep more soundly with less arousals at night. Patient has elevated residual AHI with the central index being the highest at 13.8. This improved slightly with adjusting his pressure to 14/8 cm H2O. I reviewed past pressure reports showing he had even better apnea control with his pressure at 13/8 cm H2O. I will adjust his pressure to 13/8 cm H2O at this time. Patient's apnea severity and rationale for treatment to reduce apnea, improve sleep quality and reduce cardiovascular and cerebrovascular events was reviewed. I also reviewed the benefit of consistent device use of BIPAP for hypertension and arrhythmia. 2. Obesity, unspecified. Currently patients BMI is 30.5. Obesity increases the risk of apnea, BIPAP pressure requirements and overall health risks especially cardiovascular and diabetes. Thus patient is advised to lose weight. * Change BIPAP pressure to 13/8 cmH2O * Notify me if snoring with mask or feeling that the pressure is too much or too little * Attempt to lose weight * Call this office if any problems using CPAP * Return for follow up in 1 year, or sooner if concerns arise Counseling Topics: Spare mask, Weight loss health impact Visit Type: In Office Time Spent with Patient (minutes): 21 Provider Statement: I spent 100% of the Face to Face Visit with the patient with greater than 50% spent counseling the patient and coordination of care.
== END 2022-11-09 09:14 | disposition home or self-care (01) ==
LOC: SC 09:13
PROVIDERS: ATTEND Nurse Practitioner Family
DX: G47.33 Obstructive sleep apnea (adult) (pediatric) (principal); E66.9 Obesity, unspecified; Z68.30 Body mass index [BMI] 30.0-30.9, adult
CPT/HCPCS: 99213; G0463; 99212

== ENCOUNTER 2022-12-13 08:22 | Outpatient (CLI) | payer MEDICARE, BC ==
[2022-12-13 08:32] LABS: BASOPHILS # (AUTO) 0.1 10^3/uL (0.0-0.1); BASOPHILS % (AUTO) 0.6 %; EOSINOPHILS # (AUTO) 0.2 10^3/uL (0.0-0.7); EOSINOPHILS % (AUTO) 2.3 %; HCT - HEMATOCRIT 42.2 % (42.0-52.0); LYMPHOCYTES # (AUTO) 1.8 10^3/uL (1.5-3.5); LYMPHOCYTES % (AUTO) 20.3 %; MEAN CORPUSCULAR HEMOGLOBIN 29.1 pg (27.0-31.0); MEAN CORPUSCULAR HGB CONC 30.8 g/dL (32.0-36.0); MEAN CORPUSCULAR VOLUME 94.6 fL (80.0-94.0); MEAN PLATELET VOLUME 9.5 fL (7.4-11.4); MONOCYTES # (AUTO) 0.7 10^3/uL (0.0-1.0); MONOCYTES % (AUTO) 8.6 %; NEUTROPHILS # (AUTO) 5.9 10^3/uL (1.5-6.6); NEUTROPHILS % (AUTO) 67.7 %; PLT - PLATELET COUNT 220 10^3/uL (130-450); RED BLOOD COUNT 4.46 10^6/uL (4.70-6.10); RED CELL DISTRIBUTION WIDTH 15.1 % (12.0-15.0); WHITE BLOOD COUNT 8.6 x10^3/uL (4.8-10.8)
[2022-12-13 08:49] LABS: CHOL/HDL RATIO 3.1 (<5.0); CHOLESTEROL 176 mg/dL; HDL CHOLESTEROL 57 mg/dL; LDL CHOLESTEROL,CALCULATED 97 mg/dL; LDL/HDL RATIO 1.7 (<3.6); TRIGLYCERIDES 112 mg/dL; VLDL CHOLESTEROL 22 mg/dL
[2022-12-13 09:01] LABS: THYROID STIMULATING HORMONE 0.43 uIU/mL (0.34-5.60)
[2022-12-13 12:26] LABS: ESTIMATED AVERAGE GLUCOSE 183 mg/dL (70-100)
== END 2022-12-13 08:23 | disposition home or self-care (01) ==
LOC: LAB 08:22
PROVIDERS: ATTEND Registered Nurse
DX: I10 Essential (primary) hypertension (principal); E03.9 Hypothyroidism, unspecified; E78.2 Mixed hyperlipidemia; E11.9 Type 2 diabetes mellitus without complications
CPT/HCPCS: 36415; 80061; 83036; 83721; 84443; 85025

== ENCOUNTER 2023-07-12 12:52 | Outpatient (CLI) | payer MEDICARE, BC ==
[2023-07-12 13:13] LABS: ALBUMIN 4.3 g/dL (3.2-5.5); ALBUMIN/GLOBULIN RATIO 2.4 (1.0-2.2); BILIRUBIN,TOTAL 0.4 mg/dL (0.2-1.0); CALCIUM 9.4 mg/dL (8.5-10.3); CREATININE 1.3 mg/dL (0.6-1.3); POTASSIUM 4.6 mmol/L (3.5-4.5); TOTAL PROTEIN 6.1 g/dL (6.4-8.9)
== END 2023-07-12 12:53 | disposition home or self-care (01) ==
LOC: LAB 12:52
PROVIDERS: ATTEND Nurse Practitioner
DX: I48.0 Paroxysmal atrial fibrillation (principal)
CPT/HCPCS: 36415; 80053